=== PATIENT | female | born 1935 | race American Indian/Alaskan Native ===

== ENCOUNTER 2017-01-12 12:04 | Inpatient (IN) | payer MEDICARE, BC ==
[2017-01-12] MEDS ORDERED: Iohexol 240 (50 ml) ONE (12:43)
[2017-01-12] MEDS ORDERED: Alum-Mag Hydrox-Simethicone Susp (30 mL) PO STA (12:52)
[2017-01-12] MEDS ORDERED: Famotidine 20mg/50ml 20 MG/50 ML BAG IVPB STA (12:52)
[2017-01-12 13:00] LABS: BASO # 0.01 K/mm3 (0.0-2.0); BASO % 0.1 % (0.0-3.0); GRAN # 10.65 (1.4-6.5); GRAN % 83.8 % (50.0-68.0); HEMATOCRIT 41.1 % (36.0-48.0); LYMPH # 0.7 (1.2-3.4); LYMPH % 5.2 % (22.0-35.0); MEAN CELL VOLUME 91.7 fl (80.0-105.0); MEAN CORPUSCULAR HEMOGLOBIN 32.1 pg (25.0-35.0); MEAN PLATELET VOLUME 9.8 fl (7.0-11.0); MONO # 1.4 (0.1-0.6); MONO % 10.9 % (1.0-6.0); RED CELL DISTRIBUTION WIDTH 13.3 % (11.5-14.5); WHITE BLOOD COUNT 12.7 10^3/ul (4.5-11.0)
[2017-01-12 13:03] LABS: VENOUS BLOOD GAS BASE EXCESS -0.3 mmol/L (0.0-2.0); VENOUS BLOOD PH 7.46 (7.32-7.43)
--- NOTE | 2017-01-12 13:09 | ED PDOC ---
Arrival/HPI - General Chief Complaint: Abdominal Pain Time Seen by Provider: 01/12/17 12:09 Historian: Patient, Family - History of Present Illness Narrative History of Present Illness (Text): 01/12/17 Nimo Hewitt is an 81 year old female, whose past medical history includes hypertension, and hyperlipidemia, who presents to the emergency department accompanied by her family, with complaints of upper abdominal pain for the past week and a half. Patient reports she has decreased bowel movements along with loss of appetite and fever. Patient denies any nausea, vomiting, hematuria, cough, or other complaints. PMD: Dr. Quintanilla Time/Duration: > week (1 week and a half) Symptom Onset: Sudden Symptom Course: Unchanged Associated Symptoms (Text): fever, loss of appetite, and decreased bowel movement Past Medical History - Provider Review Nursing Documentation Reviewed: Yes - Cardiac Hx Hypertension: Yes - Pulmonary Hx Respiratory Disorders: No - Neurological Hx Neurological Disorder: No - HEENT Hx HEENT Disorder: No - Renal Hx Renal Disorder: No - Endocrine/Metabolic Hx Endocrine Disorders: No - Hematological/Oncological Hx Blood Disorders: No - Integumentary Hx Dermatological Disorder: No - Musculoskeletal/Rheumatological Hx Musculoskeletal Disorders: No - Gastrointestinal Hx Gastrointestinal Disorders: No - Genitourinary/Gynecological Hx Genitourinary Disorders: No - Psychiatric Hx Psychophysiologic Disorder: No Hx Substance Use: No Family/Social History - Physician Review Nursing Documentation Reviewed: Yes Family/Social History: Unknown Family HX Smoking Status: Never Smoked Hx Alcohol Use: No Hx Substance Use: No Allergies/Home Meds Allergies/Adverse Reactions: Allergies No Known Allergies Allergy (Verified 01/12/17 12:08) Home Medications: Home Meds Medication Instructions Recorded Confirmed Bisoprolol/HCTZ [Ziac 2.5-6.25 mg] 1 tab PO DAILY 01/12/17 01/12/17 Olmesartan Medoxomil [Benicar] 40 mg PO DAILY 01/12/17 01/12/17 Review of Systems - Review of Systems Constitutional: Fevers Respiratory: absent: SOB Cardiovascular: absent: Chest Pain Gastrointestinal: Abdominal Pain, Stool Changes (decreased ), Appetite Changes Neurological: absent: Headache Physical Exam Vital Signs Reviewed: Yes Vital Signs Temp Pulse Resp BP Pulse Ox 01/12/17 17:17 77 12 112/66 100 01/12/17 16:14 72 12 134/86 100 01/12/17 15:05 77 16 116/61 99 01/12/17 14:37 86 18 126/65 100 01/12/17 13:51 86 20 139/64 100 01/12/17 12:51 92 H 18 134/60 100 01/12/17 12:17 103.1 F H 105 H 18 99/61 L 96 01/12/17 12:10 103.1 F H 105 H 16 99/61 L 96 Temperature: Febrile Blood Pressure: Hypotensive Pulse: Tachycardic Respiratory Rate: Normal Appearance: Positive for: Well-Appearing, Non-Toxic, Comfortable Pain Distress: None Mental Status: Positive for: Alert and Oriented X 3 - Systems Exam Head: Present: Atraumatic, Normocephalic Pupils: Present: PERRL Extroacular Muscles: Present: EOMI Conjunctiva: Present: Icteric Mouth: Present: Moist Mucous Membranes Neck: Present: Normal Range of Motion Respiratory/Chest: Present: Clear to Auscultation, Good Air Exchange. No: Respiratory Distress, Accessory Muscle Use Cardiovascular: Present: Regular Rate and Rhythm, Normal S1, S2. No: Murmurs Abdomen: Present: Normal Bowel Sounds, Other (hepatomegaly ). No: Tenderness, Distention, Peritoneal Signs Back: Present: Normal Inspection Upper Extremity: Present: Normal Inspection. No: Cyanosis, Edema Lower Extremity: Present: Normal Inspection. No: Edema Neurological: Present: GCS=15, CN II-XII Intact, Speech Normal Skin: Present: Warm, Dry, Normal Color. No: Rashes Psychiatric: Present: Alert, Oriented x 3, Normal Insight, Normal Concentration Medical Decision Making ED Course and Treatment: 01/12/17 Impression: 81 year old female with hepatomegaly and icteric sclera complaining of upper abdominal pain for the past week and a half. Differential Diagnosis included but are not limited to: r/o sepsis vs. secondary to obstruction vs. gastritis vs. pancreatitis vs. shock liver Plan: -- EKG -- Chest X-ray -- Abdomen Ultrasound -- Labs -- Motrin, Pepcid, Maalox, Sodium Chloride -- Reassess and disposition Progress Notes: EKG: Ordered, reviewed, and independently interpreted the EKG. Rate : 100 BPM Rhythm : sinus tachycardia Interpretation : left atrial enlargement 01/12/17 13:28 Code sepsis was called 01/12/2017 15:54 Abd/Pelvis CT IMPRESSION: Gallbladder is enlarged. There is some mural thickening. There are some septations within the gallbladder. There may be lucent stones. The cystic duct appears to be dilated. There may be secondary obstruction of the upper common duct. There is intrahepatic ductal dilatation especially in the left lobe. Ultrasound correlation may be indicated. Dictator : Jarrett Limon MD 01/12/17 16:[address] Martel who will admit under her service. Case discussed with Surgical Student Rachna who will come with Community Youth Secretary. Dr. Hardeep mcclain. Dr. Ness pageperry. 01/12/17 16:[address] Garcia ICU who came to see patient. 01/12/17 17:09 I was informed that Dr. Metcalf called and said he was coming to see the patient. 01/12/17 17:[address] Ness who states that he will do an MRCP tomorrow. He agreed with antibiotic regiment. Josselin regional vice president surgical sales. 01/12/17 17:30 Case discussed with Community Youth Secretary Dr. Sharla Blandon who came to the ED to evaluate patient. She is working with Dr. Metcalf. Case discussed again with Dr. Garcia, ICU, who is aware GI Dr. Ness will do MRCP tomorrow and agrees patient will be admitted to the ICU. Case discussed with Dr. Chacon, ICU Resident, who will see the patient. - Critical Care Critical Care Minutes: 45 minutes - Lab Interpretations Lab Results: 01/12/17 12:50 01/12/17 12:50 Lab Results 01/12/17 16:07: Urine Color Yellow, Urine Appearance Sl cloudy, Urine pH 6.5, Ur Specific [place] <= 1.005, Urine Protein Negative, Urine Glucose (UA) Negative, Urine Ketones Negative, Urine Blood Small H, Urine Nitrate Negative, Urine Bilirubin Small H, Urine Urobilinogen 1.0 H, Ur Leukocyte Esterase Small H , Urine RBC 1 - 3, Urine WBC 5 - 10, Ur Epithelial Cells 6 - 8, Urine Bacteria Many 01/12/17 12:50: Sodium 135, Chloride 101, Potassium 3.6, Carbon Dioxide 22, Anion Gap 16, BUN 12, Creatinine 0.8, Est GFR ( Amer) > 60, Est GFR (Non- Af Amer) > 60, Random Glucose 157 H, Calcium 9.5, Phosphorus 1.6 L, Magnesium 1.9, Total Bilirubin 8.0 H, AST 289 H, ALT 303 H, Alkaline Phosphatase 221 H, Troponin I 0.02, Total Protein 8.3, Albumin 4.2, Globulin 4.1, Albumin/Globulin Ratio 1.0 L 01/12/17 12:50: pO2 49, VBG pH 7.46 H, VBG pCO2 32.0 L, VBG HCO3 22.8, VBG Total CO2 23.8, VBG O2 Sat (Calc) 91.9 H, VBG Base Excess -0.3 L, VBG Potassium 3.5 L, Sodium 134.0, Chloride 101.0, Glucose 162 H, Lactate 2.3 H, FiO2 21.0, Venous Blood Potassium 3.5 L 01/12/17 12:50: PT 12.3 H, INR 1.14 H, APTT 26.8 01/12/17 12:50: WBC 12.7 H, RBC 4.48, Hgb 14.4, Hct 41.1, MCV 91.7, MCH 32.1, MCHC 35.0, RDW 13.3, Plt Count 270, MPV 9.8, Gran % 83.8 H, Lymph % (Auto) 5.2 L , [place] % (Auto) 10.9 H, Eos % (Auto) 0.0 L, Baso % (Auto) 0.1, Gran # 10.65 H, Lymph # 0.7 L, [place] # 1.4 H, Eos # 0.0, Baso # 0.01 - RAD Interpretation Radiology Orders: 01/12/17 12:38 CHEST PORTABLE [RAD] Stat 01/12/17 12:39 ABD PELVIS PO & IV CONTRAST [CT] Stat 01/12/17 16:07 ABDOMEN COMPLETE [US] Stat - EKG Interpretation Interpreted by ED Physician: Yes Type: 12 lead EKG - Medication Orders Current Medication Orders: Sodium Chloride (Sodium Chloride 0.9%) 1,000 mls @ 150 mls/hr IV .Q6H40M THERESA Piperacillin Sod/Tazobactam Sod (Zosyn 4.5 Gm In Ns 100ml) 4.5 gm in 100 mls @ 200 mls/hr IVPB Q6 THERESA PRN Reason: Protocol Discontinued Medications Al Hydrox/Mg Hydrox/Simethicone (Maalox Plus 30 Ml) 30 ml PO STAT STA Stop: 01/12/17 12:53 Last Admin: 01/12/17 13:19 Dose: 30 ml Famotidine (Pepcid 20mg/50ml Premix) 20 mg in 50 mls @ 100 mls/hr IVPB STAT STA Stop: 01/12/17 13:21 Last Admin: 01/12/17 13:21 Dose: 100 mls/hr Vancomycin HCl (Vancomycin 1gm) 1 gm in 250 mls @ 167 mls/hr IVPB STAT STA PRN Reason: Protocol Stop: 01/12/17 14:59 Last Admin: 01/12/17 14:03 Dose: 167 mls/hr Piperacillin Sod/Tazobactam Sod (Zosyn 4.5 Gm In Ns 100ml) 4.5 gm in 100 mls @ 200 mls/hr IVPB STAT STA PRN Reason: Protocol Stop: 01/12/17 13:59 Last Admin: 01/12/17 13:45 Dose: 200 mls/hr Ibuprofen (Motrin Tab) 600 mg PO STAT STA Stop: 01/12/17 12:53 Last Admin: 01/12/17 13:19 Dose: 600 mg Iohexol (Omnipaque 240 (50 Ml)) Confirm Administered Dose 50 ml .ROUTE .STK-MED ONE Stop: 01/12/17 12:44 Iohexol (Omnipaque 350 100 Ml) Confirm Administered Dose 350 mg .ROUTE .STK-MED ONE Stop: 01/12/17 14:32 Disposition/Present on Arrival - Present on Arrival Any Indicators Present on Arrival: No History of DVT/PE: No History of Uncontrolled Diabetes: No Urinary Catheter: No History of Decub. Ulcer: No History Surgical Site Infection Following: None - Disposition Have Diagnosis and Disposition been Completed?: Yes Diagnosis: Choledocholithiasis, Sepsis, Cholecystitis Disposition Time: 16:19 Patient Plan: ICU Patient Problems: Current Active Problems Problem Status Onset Choledocholithiasis Acute Sepsis Acute Condition: CRITICAL
[2017-01-12 13:10] LABS: INR 1.14 (0.93-1.08); PARTIAL THROMBOPLASTIN TIME 26.8 Seconds (23.7-30.8)
[2017-01-12 13:15] LABS: ALKALINE PHOSPHATASE 221 U/L (38-126); ALT/SGPT 303 U/L (7-56); AST/SGOT 289 U/L (14-36); BLOOD UREA NITROGEN 12 mg/dL (7-21); CALCIUM 9.5 mg/dL (8.4-10.5); CARBON DIOXIDE 22 mmol/L (21-33); CHLORIDE 101 mmol/L (98-107); GFR AFRICAN-AMERICAN > 60; GLUCOSE,RANDOM 157 mg/dL (70-110); MAGNESIUM 1.9 mg/dL (1.7-2.2); PHOSPHOROUS 1.6 mg/dL (2.5-4.5); POTASSIUM 3.6 mmol/L (3.6-5.0); SODIUM 135 mmol/L (132-148); TOTAL PROTEIN 8.3 g/dL (5.8-8.3)
[2017-01-12 13:24] LABS: TROPONIN I 0.02 ng/mL
[2017-01-12] MEDS ORDERED: Vancomycin 1gm in NS 250ml 1 GM/250 ML BAG IVPB STA (13:30)
[2017-01-12] MEDS ORDERED: Piperacill/Tazo 4.5gm in NS 4.5 GM/100 ML BAG IVPB STA (13:30)
[2017-01-12] MEDS ORDERED: Iohexol 350 MG/100 ML VIAL ONE (14:31)
--- NOTE | 2017-01-12 15:56 | CT ---
PROCEDURE: CT Abdomen and Pelvis with contrast HISTORY: abd pain r/o obstruction r/o appy r/o colitis COMPARISON: None. TECHNIQUE: Contrast dose: 100 cc of Omni 350 Radiation dose: Total exam DLP = 340 mGy-cm. This CT exam was performed using one or more of the following dose reduction techniques: Automated exposure control, adjustment of the mA and/or kV according to patient size, and/or use of iterative reconstruction technique. FINDINGS: LOWER THORAX: Unremarkable. LIVER: There is intrahepatic ductal dilatation especially in the left lobe. GALLBLADDER AND BILE DUCTS: Gallbladder is enlarged. There is some mural thickening. There are some septations within the gallbladder. There may be lucent stones. The cystic duct appears to be dilated. There may be secondary obstruction of the upper common duct. Ultrasound correlation may be indicated PANCREAS: Unremarkable. No gross lesion or ductal dilatation. SPLEEN: Unremarkable. ADRENALS: Unremarkable. No mass. KIDNEYS AND URETERS: Unremarkable. No hydronephrosis. No solid mass. VASCULATURE: Unremarkable. No aortic aneurysm. BOWEL: Unremarkable. No obstruction. No gross mural thickening. APPENDIX: Normal appendix. PERITONEUM: Unremarkable. No free fluid. No free air. LYMPH NODES: Unremarkable. No enlarged lymph nodes. BLADDER: Unremarkable. REPRODUCTIVE: Unremarkable. BONES: No acute fracture. OTHER FINDINGS: None. IMPRESSION: Gallbladder is enlarged. There is some mural thickening. There are some septations within the gallbladder. There may be lucent stones. The cystic duct appears to be dilated. There may be secondary obstruction of the upper common duct. There is intrahepatic ductal dilatation especially in the left lobe. Ultrasound correlation may be indicated
[2017-01-12 16:22] LABS: PH,URINE 6.5 (4.7-8.0); URINE BILIRUBIN SMALL (NEGATIVE); URINE BLOOD SMALL (NEGATIVE); URINE GLUCOSE (UA) NEGATIVE (NEGATIVE); URINE KETONE NEGATIVE (NEGATIVE); URINE LEUKOCYTE ESTERASE SMALL Leu/uL (NEGATIVE); URINE PROTEIN NEGATIVE mg/dL (<30 mg/dL)
[2017-01-12 16:25] LABS: URINE APPEARANCE SL CLOUDY (CLEAR); URINE COLOR YELLOW (YELLOW)
[2017-01-12 16:40] LABS: URINE BACTERIA MANY (NEG)
--- NOTE | 2017-01-12 16:40 | CP.PCM.HP ---
<Ciarra Barbosa - Last Filed: 01/12/17 18:07> History of Present Illness - History of Present Illness History of Present Illness: PGY-[address] Lorenzo Admission: Fever, intractable epigastric pain, decrease PO intake Nimo Hewitt is an 81 year old female, whose past medical history includes hypertension, and hyperlipidemia, presents to the emergency department accompanied by daughter, Zofia, with complaints of upper abdominal pain, decrease PO intake, and lethargy. Pt complained of mid-back pain, on-off, since 1 week ago with constipation. The back pain persist for 1 week with new onset epigastric pain 2 days ago. Daughter noticed pt has been eating less, increase lethargy, increase sleeping time. Epigastric pain is constant, aggravated by position, not associate with food intake. Denies sick contact, travel, raw seafood. Pt still take out garbage this AM. ROS (+) Subjective Fever/Chills (+) Loss of appetite. Denies N/V/D. (+) Decreased bowel movements. Last BM was 1 week ago s/p fleet enema (+) Flatulence Denies CP, SOB, dysuria, RAMOS, hematuria, cough, Numbness/tingling. Upon ED arrival, T 103.1, HR 105, RR 18, 99/91 CBC sig for WBC 12.7 BMP shows normal renal function. AST and ALT ~ 300, Alk phos 221 Total bilirubin 8 Code sepsis called at 3:30pm VBG lactate 2.3 Blood/urine culture drawn, Pending U/A Pending amylase, lipase, hep panel, acetaminophen level CXR pending official read EKG showed NSR 100. left atrial enalargement CT Abd/Pelvis: (+) enlarged gallbladder with mural thickening. (+) septations within the gallbladder with lucent stones. (+) dilated cystic duct. (+) secondary obstruction of the upper common duct. (+) intrahepatic ductal dilatation especially in the left lobe. Abdominal Ultrasound: choletlithiasis in gallbladder neck and gallbladder sludge Gallballder wall thickened with pericholecystic edema Negative de jesus sign 1.6 calculus in common bile duct, which is dilated to 1.6cm intrahepatic biliary ductal dilatation Fatty liver U/A: 5-10 WBC, Negative nitrate, positive urobilinogen ED consulted Dr. Ness, Dr. Meier, and Dr. Garcia (ICU), ID (Dr. Dawson) Pt received NS@150, Vanco and zosyn x 1, maloox, famotidine, ibuprofen PMH HTN, HLD PSH None FH Sister, [place] at 60s SH Live with daughter, 4 flight of stairs to home, no walker needed Denies ever smoke, drink, drug Allergy NKDA Med Nisoprolol/HCTX 2.5-6.25mg daily Olmesartan 40 daily PMD Cindi Quintanilla MD Present on Admission - Present on Admission Any Indicators Present on Admission: No Past Patient History - Past Social History Smoking Status: Never Smoked - CARDIAC Hx Hypertension: Yes - PULMONARY Hx Respiratory Disorders: No - NEUROLOGICAL Hx Neurological Disorder: No - HEENT Hx HEENT Problems: No - RENAL Hx Chronic Kidney Disease: No - ENDOCRINE/METABOLIC Hx Endocrine Disorders: No - HEMATOLOGICAL/ONCOLOGICAL Hx Blood Disorders: No - INTEGUMENTARY Hx Dermatological Problems: No - MUSCULOSKELETAL/RHEUMATOLOGICAL Hx Musculoskeletal Disorders: No - GASTROINTESTINAL Hx Gastrointestinal Disorders: No - GENITOURINARY/GYNECOLOGICAL Hx Genitourinary Disorders: No - PSYCHIATRIC Hx Psychophysiologic Disorder: No Hx Substance Use: No - SURGICAL HISTORY Hx Surgeries: No Meds Allergies/Adverse Reactions: Allergies Allergy/AdvReac Type Severity Reaction Status Date / Time No Known Allergies Allergy Verified 01/12/17 12:08 Physical Exam - Constitutional Appears: No Acute Distress - Head Exam Head Exam: ATRAUMATIC, NORMAL INSPECTION, NORMOCEPHALIC - Eye Exam Eye Exam: EOMI, Normal appearance, PERRL, Scleral icterus Pupil Exam: NORMAL ACCOMODATION - ENT Exam ENT Exam: Mucous Membranes Moist - Neck Exam Additional comments: SUPPLE - Respiratory Exam Respiratory Exam: Decreased Breath Sounds (bibasilar), Clear to Auscultation Bilateral. absent: Rales, Rhonchi, Wheezes - Cardiovascular Exam Cardiovascular Exam: REGULAR RHYTHM, +S1, +S2. absent: Tachycardia - GI/Abdominal Exam GI & Abdominal Exam: Hyperactive Bowel Sounds, Soft, Tenderness (mild, epigastric). absent: Distended, Guarding, Rigid - Extremities Exam Extremities exam: Positive for: normal capillary refill, pedal pulses present. Negative for: calf tenderness, pedal edema - Back Exam Back exam: absent: CVA tenderness (L), CVA tenderness (R) - Neurological Exam Neurological exam: Alert, Oriented x3 - Psychiatric Exam Psychiatric exam: Normal Affect, Normal Mood - Skin Skin Exam: Dry, Warm Results - Vital Signs Recent Vital Signs: Last Vital Signs Temp 103.1 F H 01/12/17 12:17 Pulse 72 01/12/17 16:14 Resp 12 01/12/17 16:14 BP 134/86 01/12/17 16:14 Pulse Ox 100 01/12/17 16:14 - Labs Result Diagrams: 01/12/17 12:50 01/12/17 12:50 Labs: Laboratory Results - last 24 hr 01/12/17 01/12/17 01/12/17 12:50 12:50 12:50 WBC 12.7 H RBC 4.48 Hgb 14.4 Hct 41.1 MCV 91.7 MCH 32.1 MCHC 35.0 RDW 13.3 Plt Count 270 MPV 9.8 Gran % 83.8 H Lymph % (Auto) 5.2 L [place] % (Auto) 10.9 H Eos % (Auto) 0.0 L Baso % (Auto) 0.1 Gran # 10.65 H Lymph # 0.7 L [place] # 1.4 H Eos # 0.0 Baso # 0.01 PT 12.3 H INR 1.14 H APTT 26.8 pO2 49 VBG pH 7.46 H VBG pCO2 32.0 L VBG HCO3 22.8 VBG Total CO2 23.8 VBG O2 Sat (Calc) 91.9 H VBG Base Excess -0.3 L VBG Potassium 3.5 L Sodium 134.0 Chloride 101.0 Glucose 162 H Lactate 2.3 H FiO2 21.0 Potassium Carbon Dioxide Anion Gap BUN Creatinine Est GFR ( Amer) Est GFR (Non-Af Amer) Random Glucose Calcium Phosphorus Magnesium Total Bilirubin AST ALT Alkaline Phosphatase Troponin I Total Protein Albumin Globulin Albumin/Globulin Ratio Venous Blood Potassium 3.5 L Urine Color Urine Appearance Urine pH Ur Specific [place] Urine Protein Urine Glucose (UA) Urine Ketones Urine Blood Urine Nitrate Urine Bilirubin Urine Urobilinogen Ur Leukocyte Esterase 01/12/17 01/12/17 12:50 16:07 WBC RBC Hgb Hct MCV MCH MCHC RDW Plt Count MPV Gran % Lymph % (Auto) [place] % (Auto) Eos % (Auto) Baso % (Auto) Gran # Lymph # [place] # Eos # Baso # PT INR APTT pO2 VBG pH VBG pCO2 VBG HCO3 VBG Total CO2 VBG O2 Sat (Calc) VBG Base Excess VBG Potassium Sodium 135 Chloride 101 Glucose Lactate FiO2 Potassium 3.6 Carbon Dioxide 22 Anion Gap 16 BUN 12 Creatinine 0.8 Est GFR ( Amer) > 60 Est GFR (Non-Af Amer) > 60 Random Glucose 157 H Calcium 9.5 Phosphorus 1.6 L Magnesium 1.9 Total Bilirubin 8.0 H AST 289 H ALT 303 H Alkaline Phosphatase 221 H Troponin I 0.02 Total Protein 8.3 Albumin 4.2 Globulin 4.1 Albumin/Globulin Ratio 1.0 L Venous Blood Potassium Urine Color Yellow Urine Appearance Sl cloudy Urine pH 6.5 Ur Specific [place] <= 1.005 Urine Protein Negative Urine Glucose (UA) Negative Urine Ketones Negative Urine Blood Small H Urine Nitrate Negative Urine Bilirubin Small H Urine Urobilinogen 1.0 H Ur Leukocyte Esterase Small H Assessment & Plan - Assessment and Plan (Free Text) Plan: 81 year old AA female, PMHx HTN, HLD c/o upper abdominal pain, decrease PO intake, constipation and lethargy. Pt was admitted inpatient to ICU for sepsis possibly due to cholecystitis vs choledocholithiasis. Sepsis possibly from intraabdominal infection. Doubt UTI - Pyuria without symptoms - ID following - NS@150 - Zosyn (day 1) - Pending blood culture, urine culture - tylenol prn Cholecystitis Poss Choledocholithiasis Intractable abdominal pain R/O gallstone pancreatitis - pending amylase, lipase - NPO - zofran, protonix, morphine 0.5 IV q4 prn - MRCP stat - Surgery and GI following Hyperbilirubinemia - Pending direct bilirubin, doubt hemolysis Transaminitis - pending acetaminophen level, hepatitis panel Constipation Has r/o bowel obstruction - Senna + miralax prn - pending GI rec Hx HTN - hold PO HTN med for decreased BP Hx HLD - pending lipid panel, a1c Prophylaxis = heparin SC + protonix FENA = NS@100, NPO, IV Consult: ID = Dr Dawson Surg = Dr. Shah GI = Dr. Ness ICU = Dr Garcia S/r/d/w Dr. Lorenzo <Reymundo Lorenzo - Last Filed: 01/12/17 18:28> Results - Vital Signs Recent Vital Signs: Last Vital Signs Temp 97.8 F 01/12/17 16:14 Pulse 77 01/12/17 17:17 Resp 12 01/12/17 17:17 BP 112/66 01/12/17 17:17 Pulse Ox 100 01/12/17 17:17 - Labs Result Diagrams: 01/12/17 12:50 01/12/17 12:50 Labs: Laboratory Results - last 24 hr 01/12/17 01/12/17 01/12/17 17:10 17:22 17:22 pO2 110 H VBG pH 7.42 VBG pCO2 34.0 L VBG HCO3 22.1 VBG Total CO2 23.1 VBG O2 Sat (Calc) 99.2 H VBG Base Excess -1.7 L VBG Potassium 3.3 L Sodium 135.0 Chloride 103.0 Glucose 135 H Lactate 1.3 FiO2 21.0 Direct Bilirubin 6.0 H Amylase 61 Lipase 56 Venous Blood Potassium 3.3 L Acetaminophen < 10.0 L Attending/Attestation - Attestation I have personally seen and examined this patient.: Yes I have fully participated in the care of the patient.: Yes I have reviewed all pertinent clinical information: Yes Notes (Text): 01/12/17 18:13 81 year old female with past medical history of hypertension and dyslipidemia who presents today with complaint of abdominal pain. In ER she was found to have sepsis with temperature of 103 and leukocytosis of 12.7. CT abd/pelvis showed enlarged gallbladder with mural thickening, lucent gallbladder stones with septations, dilated cystic duct, secondary obstruction of the upper common duct and intrahepatic ductal dilatation as well. Abdominal ultrasound showed cholelithiasis in gallbladder neck with gallbladder sludge, gallbladder wall thickening with pericholecystic edema and 1.6 calculus in CBD. LFTs are elevated. Patient is being admitted to ICU. Continue with NPO, IV fluids, antibiotics and analgesics. Cultures are pending. ID, surgery and GI evaluation are requested. May need MRCP/ERCP +/- surgery. Will continue to trend LFTs. Hold antihypertensives for now. Lipid panel ordered for AM. Reymundo Lorenzo MD Hospitalist.
--- NOTE | 2017-01-12 16:42 | CP.CCUPN ---
CCU Subjective - Physician Review Events Since Last Encounter (Free Text): 01/12/17 16:37 81 y/o F w/ HTn who came in with abd pain, poor P.O intake x 2 days and chills. The patient has had similar pain back in 2016 but it resolved with PPI. Currently she is seen to be comfortable, speaking and not exhibiting peritoneal signs. CCU Objective - Vital Signs / Intake & Output Vital Signs (Last 4 hours): Vital Signs Pulse Resp BP Pulse Ox 01/12/17 16:14 72 12 134/86 100 01/12/17 15:05 77 16 116/61 99 01/12/17 14:37 86 18 126/65 100 01/12/17 13:51 86 20 139/64 100 01/12/17 12:51 92 H 18 134/60 100 Intake and Output (Last 8hrs): Intake & Output 01/12/17 01/12/17 01/12/17 06:59 14:59 22:59 Weight 147 lb - Physical Exam Head: Positive for: Atraumatic, Normocephalic Pupils: Positive for: PERRL, Other (scleral icterus) Extroacular Muscles: Positive for: EOMI Conjunctiva: Positive for: Icteric Mouth: Positive for: Moist Mucous Membranes Neck: Positive for: Normal Range of Motion Respiratory/Chest: Positive for: Clear to Auscultation, Good Air Exchange. Negative for: Respiratory Distress, Accessory Muscle Use Cardiovascular: Positive for: Regular Rate and Rhythm, Normal S1, S2. Negative for: Murmurs Abdomen: Positive for: Normal Bowel Sounds, Other (hepatomegaly ). Negative for : Tenderness, Distention, Peritoneal Signs Back: Positive for: Normal Inspection Upper Extremity: Positive for: Normal Inspection. Negative for: Cyanosis, Edema Lower Extremity: Positive for: Normal Inspection. Negative for: Edema Neurological: Positive for: GCS=15, CN II-XII Intact, Speech Normal Skin: Positive for: Warm, Dry, Normal Color. Negative for: Rashes Psychiatric: Positive for: Alert, Oriented x 3, Normal Insight, Normal Concentration - Medications Active Medications: Active Medications Generic Name Dose Route Start Last Admin Trade Name Freq PRN Reason Stop Dose Admin Sodium Chloride 1,000 mls @ 150 mls/hr 01/12/17 12:45 Sodium Chloride 0.9% IV .Q6H40M THERESA - Patient Studies Lab Studies: Lab Studies 01/12/17 01/12/17 01/12/17 Range/Units 16:07 12:50 12:50 WBC (4.5-11.0) 10^3/ul RBC (3.5-6.1) 10^6/uL Hgb (12.0-16.0) g/dL Hct (36.0-48.0) % MCV (80.0-105.0) fl MCH (25.0-35.0) pg MCHC (31.0-37.0) g/dl RDW (11.5-14.5) % Plt Count (120.0-450.0) 10^3/uL MPV (7.0-11.0) fl Gran % (50.0-68.0) % Lymph % (Auto) (22.0-35.0) % [place] % (Auto) (1.0-6.0) % Eos % (Auto) (1.5-5.0) % Baso % (Auto) (0.0-3.0) % Gran # (1.4-6.5) Lymph # (1.2-3.4) [place] # (0.1-0.6) Eos # (0.0-0.7) Baso # (0.0-2.0) K/mm3 PT (9.9-11.8) Seconds INR (0.93-1.08) APTT (23.7-30.8) Seconds pO2 49 (30-55) mm/Hg VBG pH 7.46 H (7.32-7.43) VBG pCO2 32.0 L (40-60) VBG HCO3 22.8 (21-28) mmol/l VBG Total CO2 23.8 (22-28) mmol.L VBG O2 Sat (Calc) 91.9 H (40-65) % VBG Base Excess -0.3 L (0.0-2.0) mmol/L VBG Potassium 3.5 L (3.6-5.2) mmol/L Sodium 135 134.0 (132-148) mmol/L Chloride 101 101.0 (98-107) mmol/L Glucose 162 H (65-105) mg/dl Lactate 2.3 H (0.7-2.1) mmol/L FiO2 21.0 % Potassium 3.6 (3.6-5.0) mmol/L Carbon Dioxide 22 (21-33) mmol/L Anion Gap 16 (10-20) BUN 12 (7-21) mg/dL Creatinine 0.8 (0.5-1.4) mg/dL Est GFR ( Amer) > 60 Est GFR (Non-Af Amer) > 60 Random Glucose 157 H (70-110) mg/dL Calcium 9.5 (8.4-10.5) mg/dL Phosphorus 1.6 L (2.5-4.5) mg/dL Magnesium 1.9 (1.7-2.2) mg/dL Total Bilirubin 8.0 H (0.2-1.3) mg/dL AST 289 H (14-36) U/L ALT 303 H (7-56) U/L Alkaline Phosphatase 221 H (38-126) U/L Troponin I 0.02 ng/mL Total Protein 8.3 (5.8-8.3) g/dL Albumin 4.2 (3.0-4.8) g/dL Globulin 4.1 gm/dL Albumin/Globulin Ratio 1.0 L (1.1-1.8) Venous Blood Potassium 3.5 L (3.6-5.2) mmol/L Urine Color Yellow (YELLOW) Urine Appearance Sl cloudy (CLEAR) Urine pH 6.5 (4.7-8.0) Ur Specific [place] <= 1.005 (1.005-1.035) Urine Protein Negative (<30 mg/dL) mg/dL Urine Glucose (UA) Negative (NEGATIVE) mg/dL Urine Ketones Negative (NEGATIVE) mg/dL Urine Blood Small H (NEGATIVE) Urine Nitrate Negative (NEGATIVE) Urine Bilirubin Small H (NEGATIVE) Urine Urobilinogen 1.0 H (<1 E.U./dL) E.U./dL Ur Leukocyte Esterase Small H (NEGATIVE) Mic/uL 01/12/17 01/12/17 Range/Units 12:50 12:50 WBC 12.7 H (4.5-11.0) 10^3/ul RBC 4.48 (3.5-6.1) 10^6/uL Hgb 14.4 (12.0-16.0) g/dL Hct 41.1 (36.0-48.0) % MCV 91.7 (80.0-105.0) fl MCH 32.1 (25.0-35.0) pg MCHC 35.0 (31.0-37.0) g/dl RDW 13.3 (11.5-14.5) % Plt Count 270 (120.0-450.0) 10^3/uL MPV 9.8 (7.0-11.0) fl Gran % 83.8 H (50.0-68.0) % Lymph % (Auto) 5.2 L (22.0-35.0) % [place] % (Auto) 10.9 H (1.0-6.0) % Eos % (Auto) 0.0 L (1.5-5.0) % Baso % (Auto) 0.1 (0.0-3.0) % Gran # 10.65 H (1.4-6.5) Lymph # 0.7 L (1.2-3.4) [place] # 1.4 H (0.1-0.6) Eos # 0.0 (0.0-0.7) Baso # 0.01 (0.0-2.0) K/mm3 PT 12.3 H (9.9-11.8) Seconds INR 1.14 H (0.93-1.08) APTT 26.8 (23.7-30.8) Seconds pO2 (30-55) mm/Hg VBG pH (7.32-7.43) VBG pCO2 (40-60) VBG HCO3 (21-28) mmol/l VBG Total CO2 (22-28) mmol.L VBG O2 Sat (Calc) (40-65) % VBG Base Excess (0.0-2.0) mmol/L VBG Potassium (3.6-5.2) mmol/L Sodium (132-148) mmol/L Chloride (98-107) mmol/L Glucose (65-105) mg/dl Lactate (0.7-2.1) mmol/L FiO2 % Potassium (3.6-5.0) mmol/L Carbon Dioxide (21-33) mmol/L Anion Gap (10-20) BUN (7-21) mg/dL Creatinine (0.5-1.4) mg/dL Est GFR ( Amer) Est GFR (Non-Af Amer) Random Glucose (70-110) mg/dL Calcium (8.4-10.5) mg/dL Phosphorus (2.5-4.5) mg/dL Magnesium (1.7-2.2) mg/dL Total Bilirubin (0.2-1.3) mg/dL AST (14-36) U/L ALT (7-56) U/L Alkaline Phosphatase (38-126) U/L Troponin I ng/mL Total Protein (5.8-8.3) g/dL Albumin (3.0-4.8) g/dL Globulin gm/dL Albumin/Globulin Ratio (1.1-1.8) Venous Blood Potassium (3.6-5.2) mmol/L Urine Color (YELLOW) Urine Appearance (CLEAR) Urine pH (4.7-8.0) Ur Specific [place] (1.005-1.035) Urine Protein (<30 mg/dL) mg/dL Urine Glucose (UA) (NEGATIVE) mg/dL Urine Ketones (NEGATIVE) mg/dL Urine Blood (NEGATIVE) Urine Nitrate (NEGATIVE) Urine Bilirubin (NEGATIVE) Urine Urobilinogen (<1 E.U./dL) E.U./dL Ur Leukocyte Esterase (NEGATIVE) Mic/uL Laboratory Results - last 24 hr 01/12/17 01/12/17 01/12/17 12:50 12:50 12:50 WBC 12.7 H RBC 4.48 Hgb 14.4 Hct 41.1 MCV 91.7 MCH 32.1 MCHC 35.0 RDW 13.3 Plt Count 270 MPV 9.8 Gran % 83.8 H Lymph % (Auto) 5.2 L [place] % (Auto) 10.9 H Eos % (Auto) 0.0 L Baso % (Auto) 0.1 Gran # 10.65 H Lymph # 0.7 L [place] # 1.4 H Eos # 0.0 Baso # 0.01 PT 12.3 H INR 1.14 H APTT 26.8 pO2 49 VBG pH 7.46 H VBG pCO2 32.0 L VBG HCO3 22.8 VBG Total CO2 23.8 VBG O2 Sat (Calc) 91.9 H VBG Base Excess -0.3 L VBG Potassium 3.5 L Sodium 134.0 Chloride 101.0 Glucose 162 H Lactate 2.3 H FiO2 21.0 Potassium Carbon Dioxide Anion Gap BUN Creatinine Est GFR ( Amer) Est GFR (Non-Af Amer) Random Glucose Calcium Phosphorus Magnesium Total Bilirubin AST ALT Alkaline Phosphatase Troponin I Total Protein Albumin Globulin Albumin/Globulin Ratio Venous Blood Potassium 3.5 L Urine Color Urine Appearance Urine pH Ur Specific [place] Urine Protein Urine Glucose (UA) Urine Ketones Urine Blood Urine Nitrate Urine Bilirubin Urine Urobilinogen Ur Leukocyte Esterase 01/12/17 01/12/17 12:50 16:07 WBC RBC Hgb Hct MCV MCH MCHC RDW Plt Count MPV Gran % Lymph % (Auto) [place] % (Auto) Eos % (Auto) Baso % (Auto) Gran # Lymph # [place] # Eos # Baso # PT INR APTT pO2 VBG pH VBG pCO2 VBG HCO3 VBG Total CO2 VBG O2 Sat (Calc) VBG Base Excess VBG Potassium Sodium 135 Chloride 101 Glucose Lactate FiO2 Potassium 3.6 Carbon Dioxide 22 Anion Gap 16 BUN 12 Creatinine 0.8 Est GFR ( Amer) > 60 Est GFR (Non-Af Amer) > 60 Random Glucose 157 H Calcium 9.5 Phosphorus 1.6 L Magnesium 1.9 Total Bilirubin 8.0 H AST 289 H ALT 303 H Alkaline Phosphatase 221 H Troponin I 0.02 Total Protein 8.3 Albumin 4.2 Globulin 4.1 Albumin/Globulin Ratio 1.0 L Venous Blood Potassium Urine Color Yellow Urine Appearance Sl cloudy Urine pH 6.5 Ur Specific [place] <= 1.005 Urine Protein Negative Urine Glucose (UA) Negative Urine Ketones Negative Urine Blood Small H Urine Nitrate Negative Urine Bilirubin Small H Urine Urobilinogen 1.0 H Ur Leukocyte Esterase Small H EKG/Cardiology Studies: Cardiology / EKG Studies 01/12/17 12:38 ELECTROCARDIOGRAM Stat Comment: Reason For Exam: Sepsis Patient Review of Systems - EENT Eyes: UNREMARKABLE Ears: UNREMARKABLE Nose/Mouth/Throat: UNREMARKABLE - Breasts Breasts: UNREMARKABLE - Cardiovascular Cardiovascular: UNREMARKABLE - Respiratory Respiratory: UNREMARKABLE - Gastrointestinal Gastrointestinal: Abdominal Pain, Change in Bowel Habits, Change in Stool Character - Genitourinary Genitourinary: UNREMARKABLE - Reproductive: Female Reproductive:Female: UNREMARKABLE - Menstruation Menstruation: UNREMARKABLE Critical Care Progress Note - Nutrition Nutrition: Nutrition Category Date Time Status NPO Diet [DIET] Diets 01/12/17 Dinner Ordered Assessment/Plan - Assessment and Plan (Free Text) Assessment: 81 y/o F w/ HTN found to have acute cholycystitis Ct abd/pelvis shows multiple gallstones and GB wall thickening . Increased LFT, Increased alk Phos and T. Bili. US GB to check for Bile duct stone and concern for CD. NPO Continue w/ abx Vancomycin and Zosyn . Blood cx pending. Will monitor in ICu overnight cc time 55 min
--- NOTE | 2017-01-12 16:58 | CP.PCM.CON ---
History of Present Illness - History of Present Illness History of Present Illness: Consult note for Dr. Meier 81 F presents with abdominal discomfort for the past two weeks. The pain got worse in the middle of last week. Patient states that pain does not radiate to shoulder or back. It's not associated with eating food. Patient denies nausea and vomiting, and diarrhea. Patient admits to fever and chills, constipation. Last bowel movement was Tuesday, light colored, white speckled. PAtient denies weight loss abut admits to decreased diet PMH: HTN, HLD PSH: no FHx: none NKDA Past Patient History - Past Social History Smoking Status: Never Smoked - CARDIAC Hx Hypertension: Yes - PULMONARY Hx Respiratory Disorders: No - NEUROLOGICAL Hx Neurological Disorder: No - HEENT Hx HEENT Problems: No - RENAL Hx Chronic Kidney Disease: No - ENDOCRINE/METABOLIC Hx Endocrine Disorders: No - HEMATOLOGICAL/ONCOLOGICAL Hx Blood Disorders: No - INTEGUMENTARY Hx Dermatological Problems: No - MUSCULOSKELETAL/RHEUMATOLOGICAL Hx Musculoskeletal Disorders: No - GASTROINTESTINAL Hx Gastrointestinal Disorders: No - GENITOURINARY/GYNECOLOGICAL Hx Genitourinary Disorders: No - PSYCHIATRIC Hx Psychophysiologic Disorder: No Hx Substance Use: No - SURGICAL HISTORY Hx Surgeries: No Meds Allergies/Adverse Reactions: Allergies Allergy/AdvReac Type Severity Reaction Status Date / Time No Known Allergies Allergy Verified 01/12/17 12:08 - Medications Medications: Current Medications Sodium Chloride (Sodium Chloride 0.9%) 1,000 mls @ 150 mls/hr IV .Q6H40M THERESA Physical Exam - Constitutional Appears: No Acute Distress - Head Exam Head Exam: NORMAL INSPECTION - Eye Exam Eye Exam: EOMI, Scleral icterus - ENT Exam ENT Exam: Mucous Membranes Moist. absent: Mucous Membranes Dry - Neck Exam Neck exam: Positive for: Full Rom, Normal Inspection - Respiratory Exam Respiratory Exam: Clear to Auscultation Bilateral, NORMAL BREATHING PATTERN. absent: Accessory Muscle Use, Respiratory Distress - Cardiovascular Exam Cardiovascular Exam: REGULAR RHYTHM. absent: Bradycardia, Tachycardia - GI/Abdominal Exam GI & Abdominal Exam: Guarding, Soft. absent: Pulsatile Mass, Rebound, Rigid Additional comments: gallbladder palpated from right upper quadrant. pain on palpation - Extremities Exam Extremities exam: Positive for: normal inspection. Negative for: pedal edema - Neurological Exam Neurological exam: Alert, Normal Gait, Oriented x3 - Skin Skin Exam: Dry, Warm Results - Vital Signs Recent Vital Signs: Last Vital Signs Temp 103.1 F H 01/12/17 12:17 Pulse 72 01/12/17 16:14 Resp 12 01/12/17 16:14 BP 134/86 01/12/17 16:14 Pulse Ox 100 01/12/17 16:14 - Labs Result Diagrams: 01/12/17 12:50 01/12/17 12:50 Labs: Laboratory Results - last 24 hr 01/12/17 01/12/17 01/12/17 12:50 12:50 12:50 WBC 12.7 H RBC 4.48 Hgb 14.4 Hct 41.1 MCV 91.7 MCH 32.1 MCHC 35.0 RDW 13.3 Plt Count 270 MPV 9.8 Gran % 83.8 H Lymph % (Auto) 5.2 L [place] % (Auto) 10.9 H Eos % (Auto) 0.0 L Baso % (Auto) 0.1 Gran # 10.65 H Lymph # 0.7 L [place] # 1.4 H Eos # 0.0 Baso # 0.01 PT 12.3 H INR 1.14 H APTT 26.8 pO2 49 VBG pH 7.46 H VBG pCO2 32.0 L VBG HCO3 22.8 VBG Total CO2 23.8 VBG O2 Sat (Calc) 91.9 H VBG Base Excess -0.3 L VBG Potassium 3.5 L Sodium 134.0 Chloride 101.0 Glucose 162 H Lactate 2.3 H FiO2 21.0 Potassium Carbon Dioxide Anion Gap BUN Creatinine Est GFR ( Amer) Est GFR (Non-Af Amer) Random Glucose Calcium Phosphorus Magnesium Total Bilirubin AST ALT Alkaline Phosphatase Troponin I Total Protein Albumin Globulin Albumin/Globulin Ratio Venous Blood Potassium 3.5 L Urine Color Urine Appearance Urine pH Ur Specific [place] Urine Protein Urine Glucose (UA) Urine Ketones Urine Blood Urine Nitrate Urine Bilirubin Urine Urobilinogen Ur Leukocyte Esterase Urine RBC Urine WBC Ur Epithelial Cells Urine Bacteria 01/12/17 01/12/17 12:50 16:07 WBC RBC Hgb Hct MCV MCH MCHC RDW Plt Count MPV Gran % Lymph % (Auto) [place] % (Auto) Eos % (Auto) Baso % (Auto) Gran # Lymph # [place] # Eos # Baso # PT INR APTT pO2 VBG pH VBG pCO2 VBG HCO3 VBG Total CO2 VBG O2 Sat (Calc) VBG Base Excess VBG Potassium Sodium 135 Chloride 101 Glucose Lactate FiO2 Potassium 3.6 Carbon Dioxide 22 Anion Gap 16 BUN 12 Creatinine 0.8 Est GFR ( Amer) > 60 Est GFR (Non-Af Amer) > 60 Random Glucose 157 H Calcium 9.5 Phosphorus 1.6 L Magnesium 1.9 Total Bilirubin 8.0 H AST 289 H ALT 303 H Alkaline Phosphatase 221 H Troponin I 0.02 Total Protein 8.3 Albumin 4.2 Globulin 4.1 Albumin/Globulin Ratio 1.0 L Venous Blood Potassium Urine Color Yellow Urine Appearance Sl cloudy Urine pH 6.5 Ur Specific [place] <= 1.005 Urine Protein Negative Urine Glucose (UA) Negative Urine Ketones Negative Urine Blood Small H Urine Nitrate Negative Urine Bilirubin Small H Urine Urobilinogen 1.0 H Ur Leukocyte Esterase Small H Urine RBC 1 - 3 Urine WBC 5 - 10 Ur Epithelial Cells 6 - 8 Urine Bacteria Many Assessment & Plan - Assessment and Plan (Free Text) Assessment: 81F presents with abdominal pain, choledocholithiasis and cholecystitis. Plan: c/w IVF (NS @ 150) monitor vitals c/w antibiotics per primary f/u lipase, amylase f/u MRCP and GI recommendations Cholecystectomy to be scheduled for outpatient awaiting GI findings on MRCP. monitor for mental status changes Sharla Blandon DO PGY1 - Date & Time Date: 01/12/17 Time: 18:15
--- NOTE | 2017-01-12 17:08 | CP.PCM.CON ---
History of Present Illness - History of Present Illness History of Present Illness: Infectious Disease Consultation: January 12, 2017 81 yo AA female with with 2 week history of abdominal pain and 2 day history of poor oral intake and chills. The patient was found to have fevers up to 103.1 F on admission to the ER. The patient with potential cholecystitis and dehydration. The patient is not showing peritoneal signs. No other complaints. PMHx: HTN PSHx: none given Allergies: NKDA Social Hx: No tobacco, EtOH, or illicit drug use Active Medications Sodium Chloride (Sodium Chloride 0.9%) 1,000 mls @ 150 mls/hr IV .Q6H40M REPLACED BY [facility] Family Hx: none given ROS: Fevers, chills, abdominal pain, poor oral intake. No chest pain, melena, hematuria, hematemesis, hematochezia, depression, anxiety, vision loss, hearing loss, loss of consiousness. Past Patient History - Past Social History Smoking Status: Never Smoked - CARDIAC Hx Hypertension: Yes - PULMONARY Hx Respiratory Disorders: No - NEUROLOGICAL Hx Neurological Disorder: No - HEENT Hx HEENT Problems: No - RENAL Hx Chronic Kidney Disease: No - ENDOCRINE/METABOLIC Hx Endocrine Disorders: No - HEMATOLOGICAL/ONCOLOGICAL Hx Blood Disorders: No - INTEGUMENTARY Hx Dermatological Problems: No - MUSCULOSKELETAL/RHEUMATOLOGICAL Hx Musculoskeletal Disorders: No - GASTROINTESTINAL Hx Gastrointestinal Disorders: No - GENITOURINARY/GYNECOLOGICAL Hx Genitourinary Disorders: No - PSYCHIATRIC Hx Psychophysiologic Disorder: No Hx Substance Use: No - SURGICAL HISTORY Hx Surgeries: No Meds Allergies/Adverse Reactions: Allergies Allergy/AdvReac Type Severity Reaction Status Date / Time No Known Allergies Allergy Verified 01/12/17 12:08 - Medications Medications: Current Medications Sodium Chloride (Sodium Chloride 0.9%) 1,000 mls @ 150 mls/hr IV .Q6H40M REPLACED BY [facility] Physical Exam - Constitutional Appears: Non-toxic, No Acute Distress - Head Exam Head Exam: ATRAUMATIC, NORMOCEPHALIC - Eye Exam Eye Exam: EOMI, PERRL Pupil Exam: NORMAL ACCOMODATION, PERRL - ENT Exam ENT Exam: Mucous Membranes Moist, Normal External Ear Exam, TM's Normal Bilaterally - Neck Exam Neck exam: Positive for: Full Rom, Normal Inspection - Respiratory Exam Respiratory Exam: Clear to Auscultation Bilateral, NORMAL BREATHING PATTERN. absent: Rales, Rhonchi, Wheezes - Cardiovascular Exam Cardiovascular Exam: REGULAR RHYTHM, RRR, +S1, +S2 - GI/Abdominal Exam GI & Abdominal Exam: Normal Bowel Sounds, Soft. absent: Distended, Tenderness - Extremities Exam Extremities exam: Positive for: full ROM, normal inspection - Neurological Exam Neurological exam: Alert, CN II-XII Intact, Oriented x3 - Psychiatric Exam Psychiatric exam: Normal Affect, Normal Mood - Skin Skin Exam: Intact, Normal Color Results - Vital Signs Recent Vital Signs: Last Vital Signs Temp 103.1 F H 01/12/17 12:17 Pulse 72 01/12/17 16:14 Resp 12 01/12/17 16:14 BP 134/86 01/12/17 16:14 Pulse Ox 100 01/12/17 16:14 - Labs Result Diagrams: 01/12/17 12:50 01/12/17 12:50 Labs: Laboratory Results - last 24 hr 01/12/17 01/12/17 01/12/17 12:50 12:50 12:50 WBC 12.7 H RBC 4.48 Hgb 14.4 Hct 41.1 MCV 91.7 MCH 32.1 MCHC 35.0 RDW 13.3 Plt Count 270 MPV 9.8 Gran % 83.8 H Lymph % (Auto) 5.2 L [place] % (Auto) 10.9 H Eos % (Auto) 0.0 L Baso % (Auto) 0.1 Gran # 10.65 H Lymph # 0.7 L [place] # 1.4 H Eos # 0.0 Baso # 0.01 PT 12.3 H INR 1.14 H APTT 26.8 pO2 49 VBG pH 7.46 H VBG pCO2 32.0 L VBG HCO3 22.8 VBG Total CO2 23.8 VBG O2 Sat (Calc) 91.9 H VBG Base Excess -0.3 L VBG Potassium 3.5 L Sodium 134.0 Chloride 101.0 Glucose 162 H Lactate 2.3 H FiO2 21.0 Potassium Carbon Dioxide Anion Gap BUN Creatinine Est GFR ( Amer) Est GFR (Non-Af Amer) Random Glucose Calcium Phosphorus Magnesium Total Bilirubin AST ALT Alkaline Phosphatase Troponin I Total Protein Albumin Globulin Albumin/Globulin Ratio Venous Blood Potassium 3.5 L Urine Color Urine Appearance Urine pH Ur Specific [place] Urine Protein Urine Glucose (UA) Urine Ketones Urine Blood Urine Nitrate Urine Bilirubin Urine Urobilinogen Ur Leukocyte Esterase Urine RBC Urine WBC Ur Epithelial Cells Urine Bacteria 01/12/17 01/12/17 12:50 16:07 WBC RBC Hgb Hct MCV MCH MCHC RDW Plt Count MPV Gran % Lymph % (Auto) [place] % (Auto) Eos % (Auto) Baso % (Auto) Gran # Lymph # [place] # Eos # Baso # PT INR APTT pO2 VBG pH VBG pCO2 VBG HCO3 VBG Total CO2 VBG O2 Sat (Calc) VBG Base Excess VBG Potassium Sodium 135 Chloride 101 Glucose Lactate FiO2 Potassium 3.6 Carbon Dioxide 22 Anion Gap 16 BUN 12 Creatinine 0.8 Est GFR ( Amer) > 60 Est GFR (Non-Af Amer) > 60 Random Glucose 157 H Calcium 9.5 Phosphorus 1.6 L Magnesium 1.9 Total Bilirubin 8.0 H AST 289 H ALT 303 H Alkaline Phosphatase 221 H Troponin I 0.02 Total Protein 8.3 Albumin 4.2 Globulin 4.1 Albumin/Globulin Ratio 1.0 L Venous Blood Potassium Urine Color Yellow Urine Appearance Sl cloudy Urine pH 6.5 Ur Specific [place] <= 1.005 Urine Protein Negative Urine Glucose (UA) Negative Urine Ketones Negative Urine Blood Small H Urine Nitrate Negative Urine Bilirubin Small H Urine Urobilinogen 1.0 H Ur Leukocyte Esterase Small H Urine RBC 1 - 3 Urine WBC 5 - 10 Ur Epithelial Cells 6 - 8 Urine Bacteria Many Assessment & Plan - Assessment and Plan (Free Text) Assessment: 81 yo female with abdominal pain for two weeks. The patient had 2 days of chills and poor appetite. Found to have a fever of 103.1 F in ER. The patient was taken to Ultrasound and found to have dialated CBD and 1.3 cm stone blocking the CBD. The patient was started on Zosyn and Vancomycin. Zosyn alone will be adequate coverage. Patient is being admitted to the MICU for further monitoring. May need surgery versus ERCP. Would continue hydration of the patient with IV fluids. Supportive care. Thank you for allowing me to participate in the care of the patient, we will follow with you.
--- NOTE | 2017-01-12 17:10 | CARD ---
APPROVED REPORT EKG Measurement Heart [id number] <Conclusion> Sinus tachycardia Possible Left atrial enlargement Borderline ECG
--- NOTE | 2017-01-12 17:27 | US ---
HISTORY: r/o cholecystitis COMPARISON: CT abdomen and pelvis performed the same day with contrast. TECHNIQUE: Sonographic evaluation of the abdomen. FINDINGS: LIVER: Measures 15.6 cm in sagittal dimension. Echogenic liver may be seen in setting of hepatic parenchymal disease or fatty infiltration. No focal hepatic mass identified. The main portal vein appears patent with normal directional flow. GALLBLADDER: Cholelithiasis including within the gallbladder neck. Gallbladder sludge. Gallbladder wall thickening/ edema measuring up to 1.8 cm. Negative sonographic Ordoñez's sign as assessed by the senior litigation paralegal. COMMON BILE DUCT: Measures 1.6 cm. Intrahepatic biliary ductal dilatation. Probable calculus noted within the common bile duct measuring approximately 1.3 x 1.0 x 1.6 cm. PANCREAS: Not well visualized. RIGHT KIDNEY: Measures 9.6 x 4.8 x 3.4cm. No obstructing calculus or hydronephrosis identified. LEFT KIDNEY: Measures 9.8 x 5.2 x 4.0cm. No obstructing calculus or hydronephrosis identified. SPLEEN: Measures approximately 7.9 cm. AORTA: Limited views appear unremarkable. IVC: Limited views appear unremarkable. OTHER FINDINGS: None. IMPRESSION: Cholelithiasis including within the gallbladder neck. Gallbladder wall thickening and pericholecystic edema. Gallbladder sludge present. Negative sonographic Ordoñez's sign as assessed by the senior litigation paralegal. Correlate clinically for possibility of acute cholecystitis. Probable 1.6 cm calculus evident within the common bile duct which is dilated to 1.6 cm. Intrahepatic biliary ductal dilatation. Echogenic liver may be seen in setting of hepatic parenchymal disease or fatty infiltration.
[2017-01-12 17:38] LABS: VENOUS BLOOD GAS BASE EXCESS -1.7 mmol/L (0.0-2.0); VENOUS BLOOD PH 7.42 (7.32-7.43)
--- NOTE | 2017-01-12 17:57 | RAD ---
HISTORY: Sepsis Patient COMPARISON: No prior. FINDINGS: LUNGS: There are low lung volumes which may be related to poor inspiratory effort. There are fibrotic changes in the right upper lobe and tiny calcified granulomas. No focal consolidation. PLEURA: No significant pleural effusion identified, no pneumothorax apparent. CARDIOVASCULAR: Normal. OSSEOUS STRUCTURES: No significant abnormalities. VISUALIZED UPPER ABDOMEN: Normal. OTHER FINDINGS: None. IMPRESSION: No active pulmonary disease.
[2017-01-12] MEDS: Sodium Chloride 0.9% 1,000 ML IV SCH (18:00)
[2017-01-12] MEDS ORDERED: Morphine 2 mg/ml ISec IVP PRN (18:00)
[2017-01-12] MEDS ORDERED: POLYETHYLENE GLYCOL 3350 17 GM/Dose PACKET PO PRN (18:04)
--- NOTE | 2017-01-12 18:14 | PCM.SEPTIC ---
Sepsis Progress Note - Reassessment Type Date of Evaluation: 01/12/17 Time of Evaluation: 18:13 Reassessment Type: Non-invasive reassessment - Non Invasive Reassessment Were the most recent vital sign reviewed: Yes Vital Sign (Latest): Temp Pulse Resp BP Pulse Ox 97.8 F 77 12 112/66 100 01/12/17 16:14 01/12/17 17:17 01/12/17 17:17 01/12/17 17:17 01/12/17 17:17 Cardiovascular: Yes: Regular Rate, Rhythm Respiratory: Yes: Normal Breath Sounds. No: Accessory Muscle Use, Crackles, Rales, Rhonchi, Wheezing, Respiratory Distress Capillary Refill: Normal (Less than 2 sec) Pulses: Normal Radial, Normal Dorsalis Pedis Skin: Normal Color, Warm, Dry
[2017-01-12] MEDS: Piperacill/Tazo 4.5gm in NS 4.5 GM/100 ML BAG IVPB SCH ×2 (18:48→23:28)
--- NOTE | 2017-01-12 20:37 | MRI ---
EXAM: MR Abdomen Without Intravenous Contrast EXAM DATE/TIME: 01/12/2017 5:25 PM CLINICAL HISTORY: The patient age is 81 years old and is female; Pain; Abdominal pain; Generalized; Patient HX: Mrcp protocol was done; Additional info: Choledocolithiasis Facility exam id and description: Mri mrcp mrcp and abdomen w/o contrast TECHNIQUE: Multiplanar magnetic resonance images of the abdomen without intravenous contrast. COMPARISON: CT - ABD PELVIS PO IV CONTRAST 01/12/2017 2:37:44 PM FINDINGS: Liver: Gallbladder and bile ducts: There is intra-and extra hepatic biliary dilatation. Within the mid to distal common bile duct, there is a 1.8 x 1.7 cm obstructing hypointense gallstone. There is distention, lobulation, and internal septation of the gallbladder. Multiple hypointense gallstones are visualized within the gallbladder. Mild gallbladder wall thickening is identified, which can be associated with acute cholecystitis. Pancreas: No ductal dilation. Normal contour. Spleen: No splenomegaly. Adrenals: No mass. Kidneys and ureters: No hydronephrosis. No mass. Stomach and bowel: Colonic diverticula are visualized. No visualized distention. Intraperitoneal space: No significant fluid collection. Bones/joints: There is dextroscoliosis of the lumbar spine. Disc bulge/osteophyte complexes are visualized at multiple lumbar levels. There is mild retrolisthesis of L3 on L4 and L4 on L5. Vasculature: There is increased tortuosity of the aorta, without aneurysmal dilatation. Lymph nodes: No significant retroperitoneal lymphadenopathy. IMPRESSION: 1. There is intra-and extra hepatic biliary dilatation. Within the mid to distal common bile duct, there is a 1.8 x 1.7 cm obstructing gallstone. 2. There is distention, lobulation, and internal septation of the gallbladder. Multiple hypointense gallstones are visualized within the gallbladder. Mild gallbladder wall thickening is identified, which can be associated with acute cholecystitis. Surgical consultation is recommended. 3. Additional findings described above.
[2017-01-12 22:43] VITALS: BMI 26.9
[2017-01-12] MEDS ORDERED: Pneumococcal 23-Valent Vaccine IM ONE (22:43)
[2017-01-13] MEDS: Sodium Chloride 0.9% 1,000 ML IV SCH ×3 (00:52→19:36)
[2017-01-13] MEDS: Piperacill/Tazo 4.5gm in NS 4.5 GM/100 ML BAG IVPB SCH ×3 (05:08→18:15)
[2017-01-13 07:17] LABS: BASO # 0.02 K/mm3 (0.0-2.0); BASO % 0.2 % (0.0-3.0); EOS # 0.2 (0.0-0.7); EOS % 1.5 % (1.5-5.0); GRAN # 8.29 (1.4-6.5); GRAN % 72.7 % (50.0-68.0); HEMATOCRIT 37.7 % (36.0-48.0); LYMPH # 1.6 (1.2-3.4); LYMPH % 13.8 % (22.0-35.0); MEAN CELL VOLUME 93.1 fl (80.0-105.0); MEAN CORPUSCULAR HEMOGLOBIN 30.6 pg (25.0-35.0); MEAN CORPUSCULAR HGB CONC 32.9 g/dl (31.0-37.0); MONO # 1.4 (0.1-0.6); MONO % 11.8 % (1.0-6.0); RED CELL DISTRIBUTION WIDTH 13.8 % (11.5-14.5); WHITE BLOOD COUNT 11.4 10^3/ul (4.5-11.0)
[2017-01-13 07:37] LABS: ALB/GLOB RATIO 0.9 (1.1-1.8); ALKALINE PHOSPHATASE 157 U/L (38-126); ALT/SGPT 196 U/L (7-56); AST/SGOT 133 U/L (14-36); BILIRUBIN,DIRECT 5.8 mg/dL (0.0-0.4); BILIRUBIN,TOTAL 7.2 mg/dL (0.2-1.3); BLOOD UREA NITROGEN 11 mg/dL (7-21); CALCIUM 8.3 mg/dL (8.4-10.5); CARBON DIOXIDE 23 mmol/L (21-33); CHLORIDE 111 mmol/L (98-107); CHOLESTEROL 123 mg/dL (130-200); GFR AFRICAN-AMERICAN > 60; GLUCOSE,RANDOM 68 mg/dL (70-110); POTASSIUM 3.2 mmol/L (3.6-5.0); SODIUM 144 mmol/L (132-148); TOTAL PROTEIN 6.6 g/dL (5.8-8.3)
--- NOTE | 2017-01-13 07:51 | CP.PCM.CON ---
<Jose De Jesus Maguire - Last Filed: 01/13/17 16:06> History of Present Illness - History of Present Illness History of Present Illness: GI Consult Note 81 y/o F with PMH of HTN and HLD presents to the hospital for 2 week history of epigastric abdominal pain. Pt states she was brought to the hospital by her daughter. Pt states pain gradually became worse over 2 week span. Pain was noted to be sharp in nature, with no immediate alleviating or exacerbating factors at this time. There is radiation of the pain intermittently to the mid- back area. Pt said she has not had any nausea or vomiting, however she has been constipated. Over the past week, she had 1 bowel movement after she gave herself an enema at home 1 week ago. Otherwise, patient normally has bowel movements every 2-3 days. She admits to having decreased oral intake, flatulence , and feeling fatigued during this time. Pt also admits to feeling a slight subjective fever but no chills. Denies CP, SOB, N/V/D, dysphagia, melena, hematemesis, hematochezia. PMH: HTN, HLD PSH: None FMH: None Social Hx: Denies alcohol, tobacco, or illicit drug use Endo Hx: None Medication: Reviewed, as per chart. 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) - RENAL Hx Chronic Kidney Disease: No - ENDOCRINE/METABOLIC Hx Endocrine Disorders: No - HEMATOLOGICAL/ONCOLOGICAL Hx Blood Disorders: No - INTEGUMENTARY Hx Dermatological Problems: No - MUSCULOSKELETAL/RHEUMATOLOGICAL Hx Musculoskeletal Disorders: No Hx Falls: No - GASTROINTESTINAL Hx Gastrointestinal Disorders: Yes (CONSTIPATION) - GENITOURINARY/GYNECOLOGICAL Hx Genitourinary Disorders: No - PSYCHIATRIC Hx Psychophysiologic Disorder: Yes (USED TO DRINK OCCASIONAL BEER OR [email or web address].) Hx Substance Use: No - SURGICAL HISTORY Hx Surgeries: No Meds Allergies/Adverse Reactions: Allergies Allergy/AdvReac Type Severity Reaction Status Date / Time No Known Allergies Allergy Verified 01/12/17 19:31 - Medications Medications: Current Medications Heparin Sodium (Porcine) (Heparin) 5,000 units SC Q12 [facility] PRN Reason: Protocol Last Admin: 01/12/17 22:30 Dose: 5,000 units Sodium Chloride (Sodium Chloride 0.9%) 1,000 mls @ 150 mls/hr IV .Q6H40M [facility] Last Admin: 01/13/17 00:52 Dose: 150 mls/hr Piperacillin Sod/Tazobactam Sod (Zosyn 4.5 Gm In Ns 100ml) 4.5 gm in 100 mls @ 200 mls/hr IVPB Q6 [facility] PRN Reason: Protocol Last Admin: 01/13/17 05:08 Dose: 200 mls/hr Acetaminophen (Ofirmev) 650 mg in 65 mls @ 400 mls/hr IVPB Q6H PRN PRN Reason: Temperature Stop: 01/14/17 19:13 Morphine Sulfate (Morphine) 0.5 mg IVP Q4H PRN PRN Reason: Pain, moderate (4-7) Ondansetron HCl (Zofran Inj) 4 mg IVP Q6H PRN PRN Reason: Nausea/Vomiting Pantoprazole Sodium (Protonix Inj) 40 mg IVP DAILY [facility] Physical Exam - Constitutional Appears: Non-toxic, No Acute Distress - Head Exam Head Exam: ATRAUMATIC, NORMAL INSPECTION, NORMOCEPHALIC - Eye Exam Eye Exam: EOMI, Normal appearance - ENT Exam ENT Exam: Mucous Membranes Moist, Normal Exam - Respiratory Exam Respiratory Exam: Clear to Auscultation Bilateral, NORMAL BREATHING PATTERN. absent: Rales, Rhonchi, Wheezes - Cardiovascular Exam Cardiovascular Exam: Tachycardia, REGULAR RHYTHM, +S1, +S2 - GI/Abdominal Exam GI & Abdominal Exam: Distended, Hyperactive Bowel Sounds, Soft. absent: Firm, Rebound, Tenderness - Extremities Exam Extremities exam: Positive for: normal inspection. Negative for: calf tenderness, pedal edema - Neurological Exam Neurological exam: Alert, CN II-XII Intact, Oriented x3 - Psychiatric Exam Psychiatric exam: Normal Affect, Normal Mood - Skin Skin Exam: Intact, Normal Color, Warm Results - Vital Signs Recent Vital Signs: Last Vital Signs Temp 97.9 F 01/13/17 04:00 Pulse 73 01/12/17 22:24 Resp 22 01/12/17 22:24 BP 141/68 01/12/17 22:24 Pulse Ox 100 01/12/17 17:17 - Labs Result Diagrams: 01/13/17 06:45 01/13/17 06:45 Labs: Laboratory Results - last 24 hr 01/12/17 01/12/17 01/12/17 17:10 17:22 17:22 WBC RBC Hgb Hct MCV MCH MCHC RDW Plt Count MPV Gran % Lymph % (Auto) [place] % (Auto) Eos % (Auto) Baso % (Auto) Gran # Lymph # [place] # Eos # Baso # pO2 VBG pH VBG pCO2 VBG HCO3 VBG Total CO2 VBG O2 Sat (Calc) VBG Base Excess VBG Potassium Sodium Chloride Glucose Lactate FiO2 Potassium Carbon Dioxide Anion Gap BUN Creatinine Est GFR ( Amer) Est GFR (Non-Af Amer) POC Glucose (mg/dL) Random Glucose Calcium Total Bilirubin Direct Bilirubin 6.0 H AST ALT Alkaline Phosphatase Total Protein Albumin Globulin Albumin/Globulin Ratio Triglycerides Cholesterol HDL Cholesterol Amylase 61 Lipase 56 Venous Blood Potassium Acetaminophen < 10.0 L Hepatitis A IgM Ab Negative Hep Bs Antigen Negative Hep B Core IgM Ab Negative Hepatitis C Antibody Negative 01/12/17 01/12/17 01/13/17 17:22 22:05 06:45 WBC 11.4 H RBC 4.05 Hgb 12.4 D Hct 37.7 MCV 93.1 MCH 30.6 MCHC 32.9 RDW 13.8 Plt Count 237 MPV 10.0 Gran % 72.7 H Lymph % (Auto) 13.8 L [place] % (Auto) 11.8 H Eos % (Auto) 1.5 Baso % (Auto) 0.2 Gran # 8.29 H Lymph # 1.6 [place] # 1.4 H Eos # 0.2 Baso # 0.02 pO2 110 H VBG pH 7.42 VBG pCO2 34.0 L VBG HCO3 22.1 VBG Total CO2 23.1 VBG O2 Sat (Calc) 99.2 H VBG Base Excess -1.7 L VBG Potassium 3.3 L Sodium 135.0 Chloride 103.0 Glucose 135 H Lactate 1.3 FiO2 21.0 Potassium Carbon Dioxide Anion Gap BUN Creatinine Est GFR ( Amer) Est GFR (Non-Af Amer) POC Glucose (mg/dL) 104 Random Glucose Calcium Total Bilirubin Direct Bilirubin AST ALT Alkaline Phosphatase Total Protein Albumin Globulin Albumin/Globulin Ratio Triglycerides Cholesterol HDL Cholesterol Amylase Lipase Venous Blood Potassium 3.3 L Acetaminophen Hepatitis A IgM Ab Hep Bs Antigen Hep B Core IgM Ab Hepatitis C Antibody 01/13/17 06:45 WBC RBC Hgb Hct MCV MCH MCHC RDW Plt Count MPV Gran % Lymph % (Auto) [place] % (Auto) Eos % (Auto) Baso % (Auto) Gran # Lymph # [place] # Eos # Baso # pO2 VBG pH VBG pCO2 VBG HCO3 VBG Total CO2 VBG O2 Sat (Calc) VBG Base Excess VBG Potassium Sodium 144 Chloride 111 H Glucose Lactate FiO2 Potassium 3.2 L Carbon Dioxide 23 Anion Gap 13 BUN 11 Creatinine 0.5 Est GFR ( Amer) > 60 Est GFR (Non-Af Amer) > 60 POC Glucose (mg/dL) Random Glucose 68 L Calcium 8.3 L Total Bilirubin 7.2 H Direct Bilirubin 5.8 H AST 133 H D ALT 196 H Alkaline Phosphatase 157 H D Total Protein 6.6 Albumin 3.2 Globulin 3.4 Albumin/Globulin Ratio 0.9 L Triglycerides 58 Cholesterol 123 L HDL Cholesterol 42 Amylase Lipase Venous Blood Potassium Acetaminophen Hepatitis A IgM Ab Hep Bs Antigen Hep B Core IgM Ab Hepatitis C Antibody Assessment & Plan - Assessment and Plan (Free Text) Plan: 1. Choledocolithiasis 2. Cholangitis 3. Cholecystitis 4. Cholelithiasis 81 y/o F with PMH of HTN and HLD presents with choledocolithiasis. Pt underwent CT abdomen/pelvis which showed inflammation of the gallbladder along with gallstone. Abdominal US showed gallstone along with a 1.8 cm in the CBD. MRCP also confirmed results shown on ultrasound. Patient will benefit from ERCP. Pt has been evaluated by surgery and they are planning for surgery on an outpatient basis. Continue IVF and antibiotics at this time. Andrez, PGY-2 <Deon Ness - Last Filed: 01/13/17 19:17> Meds - Medications Medications: Current Medications Heparin Sodium (Porcine) (Heparin) 5,000 units SC Q12 [facility] PRN Reason: Protocol Last Admin: 01/12/17 22:30 Dose: 5,000 units Piperacillin Sod/Tazobactam Sod (Zosyn 4.5 Gm In Ns 100ml) 4.5 gm in 100 mls @ 200 mls/hr IVPB Q6 [facility] PRN Reason: Protocol Last Admin: 01/13/17 18:15 Dose: 200 mls/hr Acetaminophen (Ofirmev) 650 mg in 65 mls @ 400 mls/hr IVPB Q6H PRN PRN Reason: Temperature Stop: 01/14/17 19:13 Sodium Chloride (Sodium Chloride 0.9%) 1,000 mls @ 100 mls/hr IV .Q10H [facility] Morphine Sulfate (Morphine) 0.5 mg IVP Q4H PRN PRN Reason: Pain, moderate (4-7) Ondansetron HCl (Zofran Inj) 4 mg IVP Q6H PRN PRN Reason: Nausea/Vomiting Pantoprazole Sodium (Protonix Inj) 40 mg IVP DAILY [facility] Last Admin: 01/13/17 09:58 Dose: 40 mg Results - Vital Signs Recent Vital Signs: Last Vital Signs Temp 100.2 F H 01/13/17 08:00 Pulse 74 01/13/17 10:50 Resp 23 01/13/17 10:50 BP 147/54 L 01/13/17 10:00 Pulse Ox 100 01/13/17 12:40 - Labs Result Diagrams: 01/13/17 06:45 01/13/17 06:45 Labs: Laboratory Results - last 24 hr 01/12/17 01/12/17 01/13/17 17:22 22:05 06:45 WBC 11.4 H RBC 4.05 Hgb 12.4 D Hct 37.7 MCV 93.1 MCH 30.6 MCHC 32.9 RDW 13.8 Plt Count 237 MPV 10.0 Gran % 72.7 H Lymph % (Auto) 13.8 L [place] % (Auto) 11.8 H Eos % (Auto) 1.5 Baso % (Auto) 0.2 Gran # 8.29 H Lymph # 1.6 [place] # 1.4 H Eos # 0.2 Baso # 0.02 Sodium Potassium Chloride Carbon Dioxide Anion Gap BUN Creatinine Est GFR ( Amer) Est GFR (Non-Af Amer) POC Glucose (mg/dL) 104 Random Glucose Hemoglobin A1c Calcium Phosphorus Magnesium Total Bilirubin Direct Bilirubin AST ALT Alkaline Phosphatase Total Protein Albumin Globulin Albumin/Globulin Ratio Triglycerides Cholesterol LDL Cholesterol Direct HDL Cholesterol Procalcitonin Hepatitis A IgM Ab Negative Hep Bs Antigen Negative Hep B Core IgM Ab Negative Hepatitis C Antibody Negative 01/13/17 01/13/17 01/13/17 06:45 06:45 12:30 WBC RBC Hgb Hct MCV MCH MCHC RDW Plt Count MPV Gran % Lymph % (Auto) [place] % (Auto) Eos % (Auto) Baso % (Auto) Gran # Lymph # [place] # Eos # Baso # Sodium 144 Potassium 3.2 L Chloride 111 H Carbon Dioxide 23 Anion Gap 13 BUN 11 Creatinine 0.5 Est GFR ( Amer) > 60 Est GFR (Non-Af Amer) > 60 POC Glucose (mg/dL) Random Glucose 68 L Hemoglobin A1c 5.9 Calcium 8.3 L Phosphorus 2.1 L Magnesium 2.1 Total Bilirubin 7.2 H Direct Bilirubin 5.8 H AST 133 H D ALT 196 H Alkaline Phosphatase 157 H D Total Protein 6.6 Albumin 3.2 Globulin 3.4 Albumin/Globulin Ratio 0.9 L Triglycerides 58 Cholesterol 123 L LDL Cholesterol Direct 45 HDL Cholesterol 42 Procalcitonin 3.95 H Hepatitis A IgM Ab Hep Bs Antigen Hep B Core IgM Ab Hepatitis C Antibody 01/13/17 12:32 WBC RBC Hgb Hct MCV MCH MCHC RDW Plt Count MPV Gran % Lymph % (Auto) [place] % (Auto) Eos % (Auto) Baso % (Auto) Gran # Lymph # [place] # Eos # Baso # Sodium Potassium Chloride Carbon Dioxide Anion Gap BUN Creatinine Est GFR ( Amer) Est GFR (Non-Af Amer) POC Glucose (mg/dL) 88 Random Glucose Hemoglobin A1c Calcium Phosphorus Magnesium Total Bilirubin Direct Bilirubin AST ALT Alkaline Phosphatase Total Protein Albumin Globulin Albumin/Globulin Ratio Triglycerides Cholesterol LDL Cholesterol Direct HDL Cholesterol Procalcitonin Hepatitis A IgM Ab Hep Bs Antigen Hep B Core IgM Ab Hepatitis C Antibody Attending/Attestation - Attestation I have personally seen and examined this patient.: Yes I have fully participated in the care of the patient.: Yes I have reviewed all pertinent clinical information: Yes Notes (Text): 01/13/17 11:15 81 year old female with h/o HTN, HLD admitted with acute cholangitis, biliary obstruction 2/2 choledocholithiasis. 1. Acute cholangitis 2. Choledocholithiasis Plan: -recommend urgent ERCP today -continue broad spectrum abx -resuscitation per ICU -currently HD stable -NPO -d/w patient and family
[2017-01-13 08:25] LABS: MAGNESIUM 2.1 mg/dL (1.7-2.2); PHOSPHOROUS 2.1 mg/dL (2.5-4.5)
[2017-01-13] MEDS ORDERED: Sodium Phosphate 15 MMOLE in Sodium Chloride 0.9% 250 ML IVPB ONE (09:13)
[2017-01-13] MEDS ORDERED: Dextrose 50% SYRINGE Inj (50 ml) IVP ONE (09:15)
[2017-01-13] MEDS ORDERED: Potassium Phosphate 3 mmol/ml Inj IV ONE (09:16)
--- NOTE | 2017-01-13 09:38 | CP.PCM.PN ---
Subjective - Date & Time of Evaluation Date of Evaluation: 01/13/17 Time of Evaluation: 09:31 - Subjective Subjective: Progress note for Dr. Meier PT S&E at bedside. JOSEPHINE. Patient's T. Bili 7.2, 133/196 ALP 157 Procal 1.51, lipase 56, 61, K 3.2 repleted by Medicine team. Patient states she's feeling better today, admits to one normal BM overnight. Patient states no nausea, vomiting, fever, chills. Patient made aware that GI will see patient today. We will follow up with recommendations. Objective - Vital Signs/Intake and Output Vital Signs (last 24 hours): Temp Pulse Resp BP Pulse Ox 97.9 F 73 22 141/68 100 01/13/17 04:00 01/12/17 22:24 01/12/17 22:24 01/12/17 22:24 01/12/17 17:17 Intake and Output: 01/13/17 01/13/17 06:59 18:59 Intake Total 2000 Output Total 1100 Balance 900 - Medications Medications: Current Medications Heparin Sodium (Porcine) (Heparin) 5,000 units SC Q12 [facility] PRN Reason: Protocol Last Admin: 01/12/17 22:30 Dose: 5,000 units Piperacillin Sod/Tazobactam Sod (Zosyn 4.5 Gm In Ns 100ml) 4.5 gm in 100 mls @ 200 mls/hr IVPB Q6 [facility] PRN Reason: Protocol Last Admin: 01/13/17 05:08 Dose: 200 mls/hr Acetaminophen (Ofirmev) 650 mg in 65 mls @ 400 mls/hr IVPB Q6H PRN PRN Reason: Temperature Stop: 01/14/17 19:13 Potassium Chloride (Potassium Chloride 10 Meq/100 Ml) 10 meq in 100 mls @ 100 mls/hr IVPB Q2H [facility] Stop: 01/13/17 11:14 Last Admin: 01/13/17 08:20 Dose: 100 mls/hr Sodium Chloride (Sodium Chloride 0.9%) 1,000 mls @ 100 mls/hr IV .Q10H [facility] Sodium Phosphate 15 mmole/ (Sodium Chloride) 255 mls @ 42.5 mls/hr IVPB ONCE ONE Stop: 01/13/17 15:12 Potassium Phosphate 15 mmole/ (Sodium Chloride) 255 mls @ 42.5 mls/hr IVPB ONCE ONE Stop: 01/13/17 15:29 Morphine Sulfate (Morphine) 0.5 mg IVP Q4H PRN PRN Reason: Pain, moderate (4-7) Ondansetron HCl (Zofran Inj) 4 mg IVP Q6H PRN PRN Reason: Nausea/Vomiting Pantoprazole Sodium (Protonix Inj) 40 mg IVP DAILY [facility] - Labs Labs: 01/13/17 06:45 01/13/17 06:45 PT 12.3 Seconds (9.9-11.8) H 01/12/17 12:50 INR 1.14 (0.93-1.08) H 01/12/17 12:50 APTT 26.8 Seconds (23.7-30.8) 01/12/17 12:50 - Constitutional Appears: Non-toxic - Head Exam Head Exam: NORMAL INSPECTION - Eye Exam Eye Exam: EOMI, Normal appearance, Scleral icterus - ENT Exam ENT Exam: Mucous Membranes Moist - Neck Exam Neck Exam: Full ROM. absent: Tenderness - Respiratory Exam Respiratory Exam: Clear to Ausculation Bilateral, NORMAL BREATHING PATTERN. absent: Accessory Muscle Use, Respiratory Distress - Cardiovascular Exam Cardiovascular Exam: REGULAR RHYTHM - GI/Abdominal Exam GI & Abdominal Exam: Soft. absent: Rigid, Tenderness, Rebound Additional comments: palpable gallbladder - Extremities Exam Extremities Exam: absent: Calf Tenderness, Pedal Edema - Neurological Exam Neurological Exam: Alert, Awake, Normal Gait - Psychiatric Exam Psychiatric exam: Normal Affect, Normal Mood - Skin Skin Exam: Dry, Intact, Normal Color, Warm Assessment and Plan - Assessment and Plan (Free Text) Assessment: 81F presents with abdominal pain, choledocholithiasis and cholecystitis. Plan: c/w IVF (NS @ 150) monitor vitals c/w antibiotics per primary f/u lipase, amylase f/u ERCP and GI recommendations Cholecystectomy to be scheduled for outpatient monitor for mental status changes Sharla Blandon DO PGY1
[2017-01-13] MEDS ORDERED: Iohexol 240 (50 ml) ONE (10:35)
[2017-01-13] MEDS ORDERED: Indomethacin 50 MG Suppository PR ONE (10:36)
--- NOTE | 2017-01-13 11:29 | CP.CCUPN ---
<MIKE REAL - Last Filed: 01/13/17 11:23> CCU Subjective - Physician Review Subjective (Free Text): 01/13/17 11:23 Patient seen and assessed at bedside. Patient reports no events overnight and is fully aware of plan for ERCP later today, for which she has agreed to undergo. Patient reports being asymptomatic. Patient denies fever, headache, changes in her vision, dysphagia, chest pain, palpitations, cough, shortness of breath, abdominal pain, N/V, diarrhea or constipation. Patient endorses one solid BM overnight. CCU Objective - Vital Signs / Intake & Output Vital Signs (Last 4 hours): Vital Signs Temp Pulse Resp BP Pulse Ox 01/13/17 10:50 74 23 100 01/13/17 10:40 77 19 01/13/17 10:30 76 14 98 01/13/17 10:20 82 22 98 01/13/17 10:10 78 17 100 01/13/17 10:00 79 17 147/54 L 93 L 01/13/17 09:50 84 19 01/13/17 09:40 83 18 01/13/17 09:30 76 22 01/13/17 09:26 78 25 H 147/63 95 01/13/17 09:20 88 28 H 86 L 01/13/17 09:10 74 16 01/13/17 09:00 74 15 01/13/17 08:50 77 23 01/13/17 08:40 76 18 01/13/17 08:30 75 15 01/13/17 08:20 76 16 01/13/17 08:10 81 17 42 L 01/13/17 08:00 100.2 F H 75 15 01/13/17 07:50 78 15 01/13/17 07:40 77 23 01/13/17 07:35 81 24 Intake and Output (Last 8hrs): Intake & Output 01/12/17 01/13/17 01/13/17 22:59 06:59 14:59 Intake Total 2350 2000 Output Total 700 1100 Balance 1650 900 Weight 147 lb 167 lb Intake: IV 2350 2000 Left Forearm 2350 2000 Output: Urine 700 1100 Urine, Voided 700 1100 Other: Voiding Method Bedside Commode Bedside Commode # Voids Urine, Voided 2 # Bowel Movements 0 - Physical Exam Head: Positive for: Atraumatic, Normocephalic Pupils: Positive for: PERRL Extroacular Muscles: Positive for: EOMI Conjunctiva: Positive for: Icteric Ears: Positive for: Normal Mouth: Positive for: Moist Mucous Membranes Pharnyx: Positive for: Normal Nose (External): Positive for: Atraumatic Neck: Positive for: Normal Range of Motion, Trachea Midline. Negative for: JVD , Lymphadenopathy Respiratory/Chest: Positive for: Clear to Auscultation, Good Air Exchange. Negative for: Respiratory Distress, Accessory Muscle Use, Wheezes, Decreased Breath Sounds, Rales, Rhonchi, Tachypneic Cardiovascular: Positive for: Regular Rate and Rhythm, Normal S1, S2. Negative for: Murmurs, Irregular Rhythm, Tachycardic, Bradycardic Abdomen: Positive for: Normal Bowel Sounds. Negative for: Tenderness, Distention, Peritoneal Signs, Rebound Back: Positive for: Normal Inspection. Negative for: Midline Tenderness, Paraspinal Tenderness Upper Extremity: Positive for: Normal Inspection. Negative for: Cyanosis, Edema Lower Extremity: Positive for: Normal Inspection. Negative for: Edema Neurological: Positive for: GCS=15, CN II-XII Intact, Speech Normal Skin: Positive for: Warm, Dry, Normal Color. Negative for: Rashes Psychiatric: Positive for: Alert, Oriented x 3, Normal Insight, Normal Concentration - Medications Active Medications: Active Medications Generic Name Dose Route Start Last Admin Trade Name Freq PRN Reason Stop Dose Admin Heparin Sodium (Porcine) 5,000 units 01/12/17 22:00 01/12/17 22:30 Heparin SC 5,000 units Q12 THERESA Administration Protocol Piperacillin Sod/Tazobactam Sod 4.5 gm in 100 mls @ 200 mls/hr 01/12/17 18:00 01/13/17 05:08 Zosyn 4.5 Gm In Ns 100ml IVPB 200 mls/hr Q6 THERESA Administration Protocol Acetaminophen 650 mg in 65 mls @ 400 mls/hr 01/12/17 19:12 Ofirmev IVPB 01/14/17 19:13 Q6H PRN Temperature Sodium Chloride 1,000 mls @ 100 mls/hr 01/13/17 09:04 Sodium Chloride 0.9% IV .Q10H THERESA Sodium Phosphate 15 mmole/ 255 mls @ 42.5 mls/hr 01/13/17 09:13 01/13/17 10: 58 Sodium Chloride IVPB 01/13/17 15:12 42.5 mls/hr ONCE ONE Administration Potassium Phosphate 15 mmole/ 255 mls @ 42.5 mls/hr 01/13/17 09:30 Sodium Chloride IVPB 01/13/17 15:29 ONCE ONE Morphine Sulfate 0.5 mg 01/12/17 18:00 Morphine IVP Q4H PRN Pain, moderate (4-7) Ondansetron HCl 4 mg 01/12/17 18:00 Zofran Inj IVP Q6H PRN Nausea/Vomiting Pantoprazole Sodium 40 mg 01/13/17 10:00 01/13/17 09:58 Protonix Inj IVP 40 mg DAILY THERESA Administration - Patient Studies Lab Studies: Lab Studies 01/13/17 01/13/17 01/12/17 Range/Units 06:45 06:45 22:05 WBC 11.4 H (4.5-11.0) 10^3/ul RBC 4.05 (3.5-6.1) 10^6/uL Hgb 12.4 D (12.0-16.0) g/dL Hct 37.7 (36.0-48.0) % MCV 93.1 (80.0-105.0) fl MCH 30.6 (25.0-35.0) pg MCHC 32.9 (31.0-37.0) g/dl RDW 13.8 (11.5-14.5) % Plt Count 237 (120.0-450.0) 10^3/uL MPV 10.0 (7.0-11.0) fl Gran % 72.7 H (50.0-68.0) % Lymph % (Auto) 13.8 L (22.0-35.0) % [place] % (Auto) 11.8 H (1.0-6.0) % Eos % (Auto) 1.5 (1.5-5.0) % Baso % (Auto) 0.2 (0.0-3.0) % Gran # 8.29 H (1.4-6.5) Lymph # 1.6 (1.2-3.4) [place] # 1.4 H (0.1-0.6) Eos # 0.2 (0.0-0.7) Baso # 0.02 (0.0-2.0) K/mm3 pO2 (30-55) mm/Hg VBG pH (7.32-7.43) VBG pCO2 (40-60) VBG HCO3 (21-28) mmol/l VBG Total CO2 (22-28) mmol.L VBG O2 Sat (Calc) (40-65) % VBG Base Excess (0.0-2.0) mmol/L VBG Potassium (3.6-5.2) mmol/L Sodium 144 (132-148) mmol/L Chloride 111 H (98-107) mmol/L Glucose (65-105) mg/dl Lactate (0.7-2.1) mmol/L FiO2 % Potassium 3.2 L (3.6-5.0) mmol/L Carbon Dioxide 23 (21-33) mmol/L Anion Gap 13 (10-20) BUN 11 (7-21) mg/dL Creatinine 0.5 (0.5-1.4) mg/dL Est GFR ( Amer) > 60 Est GFR (Non-Af Amer) > 60 POC Glucose (mg/dL) 104 (65-110) mg/dL Random Glucose 68 L (70-110) mg/dL Calcium 8.3 L (8.4-10.5) mg/dL Phosphorus 2.1 L (2.5-4.5) mg/dL Magnesium 2.1 (1.7-2.2) mg/dL Total Bilirubin 7.2 H (0.2-1.3) mg/dL Direct Bilirubin 5.8 H (0.0-0.4) mg/dL AST 133 H D (14-36) U/L ALT 196 H (7-56) U/L Alkaline Phosphatase 157 H D (38-126) U/L Total Protein 6.6 (5.8-8.3) g/dL Albumin 3.2 (3.0-4.8) g/dL Globulin 3.4 gm/dL Albumin/Globulin Ratio 0.9 L (1.1-1.8) Triglycerides 58 (35-160) mg/dL Cholesterol 123 L (130-200) mg/dL LDL Cholesterol Direct 45 (0-129) mg/dL HDL Cholesterol 42 (29-60) mg/dL Amylase (35-125) U/L Lipase (23-300) U/L Venous Blood Potassium (3.6-5.2) mmol/L Acetaminophen (10.0-20.0) ug/ml Hepatitis A IgM Ab (NEGATIVE) Hep Bs Antigen (NEGATIVE) Hep B Core IgM Ab (NEGATIVE) Hepatitis C Antibody (NEGATIVE) 01/12/17 01/12/17 01/12/17 Range/Units 17:22 17:22 17:22 WBC (4.5-11.0) 10^3/ul RBC (3.5-6.1) 10^6/uL Hgb (12.0-16.0) g/dL Hct (36.0-48.0) % MCV (80.0-105.0) fl MCH (25.0-35.0) pg MCHC (31.0-37.0) g/dl RDW (11.5-14.5) % Plt Count (120.0-450.0) 10^3/uL MPV (7.0-11.0) fl Gran % (50.0-68.0) % Lymph % (Auto) (22.0-35.0) % [place] % (Auto) (1.0-6.0) % Eos % (Auto) (1.5-5.0) % Baso % (Auto) (0.0-3.0) % Gran # (1.4-6.5) Lymph # (1.2-3.4) [place] # (0.1-0.6) Eos # (0.0-0.7) Baso # (0.0-2.0) K/mm3 pO2 110 H (30-55) mm/Hg VBG pH 7.42 (7.32-7.43) VBG pCO2 34.0 L (40-60) VBG HCO3 22.1 (21-28) mmol/l VBG Total CO2 23.1 (22-28) mmol.L VBG O2 Sat (Calc) 99.2 H (40-65) % VBG Base Excess -1.7 L (0.0-2.0) mmol/L VBG Potassium 3.3 L (3.6-5.2) mmol/L Sodium 135.0 (132-148) mmol/L Chloride 103.0 (98-107) mmol/L Glucose 135 H (65-105) mg/dl Lactate 1.3 (0.7-2.1) mmol/L FiO2 21.0 % Potassium (3.6-5.0) mmol/L Carbon Dioxide (21-33) mmol/L Anion Gap (10-20) BUN (7-21) mg/dL Creatinine (0.5-1.4) mg/dL Est GFR ( Amer) Est GFR (Non-Af Amer) POC Glucose (mg/dL) (65-110) mg/dL Random Glucose (70-110) mg/dL Calcium (8.4-10.5) mg/dL Phosphorus (2.5-4.5) mg/dL Magnesium (1.7-2.2) mg/dL Total Bilirubin (0.2-1.3) mg/dL Direct Bilirubin (0.0-0.4) mg/dL AST (14-36) U/L ALT (7-56) U/L Alkaline Phosphatase (38-126) U/L Total Protein (5.8-8.3) g/dL Albumin (3.0-4.8) g/dL Globulin gm/dL Albumin/Globulin Ratio (1.1-1.8) Triglycerides (35-160) mg/dL Cholesterol (130-200) mg/dL LDL Cholesterol Direct (0-129) mg/dL HDL Cholesterol (29-60) mg/dL Amylase (35-125) U/L Lipase (23-300) U/L Venous Blood Potassium 3.3 L (3.6-5.2) mmol/L Acetaminophen < 10.0 L (10.0-20.0) ug/ml Hepatitis A IgM Ab Negative (NEGATIVE) Hep Bs Antigen Negative (NEGATIVE) Hep B Core IgM Ab Negative (NEGATIVE) Hepatitis C Antibody Negative (NEGATIVE) 01/12/17 Range/Units 17:10 WBC (4.5-11.0) 10^3/ul RBC (3.5-6.1) 10^6/uL Hgb (12.0-16.0) g/dL Hct (36.0-48.0) % MCV (80.0-105.0) fl MCH (25.0-35.0) pg MCHC (31.0-37.0) g/dl RDW (11.5-14.5) % Plt Count (120.0-450.0) 10^3/uL MPV (7.0-11.0) fl Gran % (50.0-68.0) % Lymph % (Auto) (22.0-35.0) % [place] % (Auto) (1.0-6.0) % Eos % (Auto) (1.5-5.0) % Baso % (Auto) (0.0-3.0) % Gran # (1.4-6.5) Lymph # (1.2-3.4) [place] # (0.1-0.6) Eos # (0.0-0.7) Baso # (0.0-2.0) K/mm3 pO2 (30-55) mm/Hg VBG pH (7.32-7.43) VBG pCO2 (40-60) VBG HCO3 (21-28) mmol/l VBG Total CO2 (22-28) mmol.L VBG O2 Sat (Calc) (40-65) % VBG Base Excess (0.0-2.0) mmol/L VBG Potassium (3.6-5.2) mmol/L Sodium (132-148) mmol/L Chloride (98-107) mmol/L Glucose (65-105) mg/dl Lactate (0.7-2.1) mmol/L FiO2 % Potassium (3.6-5.0) mmol/L Carbon Dioxide (21-33) mmol/L Anion Gap (10-20) BUN (7-21) mg/dL Creatinine (0.5-1.4) mg/dL Est GFR ( Amer) Est GFR (Non-Af Amer) POC Glucose (mg/dL) (65-110) mg/dL Random Glucose (70-110) mg/dL Calcium (8.4-10.5) mg/dL Phosphorus (2.5-4.5) mg/dL Magnesium (1.7-2.2) mg/dL Total Bilirubin (0.2-1.3) mg/dL Direct Bilirubin 6.0 H (0.0-0.4) mg/dL AST (14-36) U/L ALT (7-56) U/L Alkaline Phosphatase (38-126) U/L Total Protein (5.8-8.3) g/dL Albumin (3.0-4.8) g/dL Globulin gm/dL Albumin/Globulin Ratio (1.1-1.8) Triglycerides (35-160) mg/dL Cholesterol (130-200) mg/dL LDL Cholesterol Direct (0-129) mg/dL HDL Cholesterol (29-60) mg/dL Amylase 61 (35-125) U/L Lipase 56 (23-300) U/L Venous Blood Potassium (3.6-5.2) mmol/L Acetaminophen (10.0-20.0) ug/ml Hepatitis A IgM Ab (NEGATIVE) Hep Bs Antigen (NEGATIVE) Hep B Core IgM Ab (NEGATIVE) Hepatitis C Antibody (NEGATIVE) Laboratory Results - last 24 hr 01/12/17 01/12/17 01/12/17 17:10 17:22 17:22 WBC RBC Hgb Hct MCV MCH MCHC RDW Plt Count MPV Gran % Lymph % (Auto) [place] % (Auto) Eos % (Auto) Baso % (Auto) Gran # Lymph # [place] # Eos # Baso # pO2 VBG pH VBG pCO2 VBG HCO3 VBG Total CO2 VBG O2 Sat (Calc) VBG Base Excess VBG Potassium Sodium Chloride Glucose Lactate FiO2 Potassium Carbon Dioxide Anion Gap BUN Creatinine Est GFR ( Amer) Est GFR (Non-Af Amer) POC Glucose (mg/dL) Random Glucose Calcium Phosphorus Magnesium Total Bilirubin Direct Bilirubin 6.0 H AST ALT Alkaline Phosphatase Total Protein Albumin Globulin Albumin/Globulin Ratio Triglycerides Cholesterol LDL Cholesterol Direct HDL Cholesterol Amylase 61 Lipase 56 Venous Blood Potassium Acetaminophen < 10.0 L Hepatitis A IgM Ab Negative Hep Bs Antigen Negative Hep B Core IgM Ab Negative Hepatitis C Antibody Negative 01/12/17 01/12/17 01/13/17 17:22 22:05 06:45 WBC 11.4 H RBC 4.05 Hgb 12.4 D Hct 37.7 MCV 93.1 MCH 30.6 MCHC 32.9 RDW 13.8 Plt Count 237 MPV 10.0 Gran % 72.7 H Lymph % (Auto) 13.8 L [place] % (Auto) 11.8 H Eos % (Auto) 1.5 Baso % (Auto) 0.2 Gran # 8.29 H Lymph # 1.6 [place] # 1.4 H Eos # 0.2 Baso # 0.02 pO2 110 H VBG pH 7.42 VBG pCO2 34.0 L VBG HCO3 22.1 VBG Total CO2 23.1 VBG O2 Sat (Calc) 99.2 H VBG Base Excess -1.7 L VBG Potassium 3.3 L Sodium 135.0 Chloride 103.0 Glucose 135 H Lactate 1.3 FiO2 21.0 Potassium Carbon Dioxide Anion Gap BUN Creatinine Est GFR ( Amer) Est GFR (Non-Af Amer) POC Glucose (mg/dL) 104 Random Glucose Calcium Phosphorus Magnesium Total Bilirubin Direct Bilirubin AST ALT Alkaline Phosphatase Total Protein Albumin Globulin Albumin/Globulin Ratio Triglycerides Cholesterol LDL Cholesterol Direct HDL Cholesterol Amylase Lipase Venous Blood Potassium 3.3 L Acetaminophen Hepatitis A IgM Ab Hep Bs Antigen Hep B Core IgM Ab Hepatitis C Antibody 01/13/17 06:45 WBC RBC Hgb Hct MCV MCH MCHC RDW Plt Count MPV Gran % Lymph % (Auto) [place] % (Auto) Eos % (Auto) Baso % (Auto) Gran # Lymph # [place] # Eos # Baso # pO2 VBG pH VBG pCO2 VBG HCO3 VBG Total CO2 VBG O2 Sat (Calc) VBG Base Excess VBG Potassium Sodium 144 Chloride 111 H Glucose Lactate FiO2 Potassium 3.2 L Carbon Dioxide 23 Anion Gap 13 BUN 11 Creatinine 0.5 Est GFR ( Amer) > 60 Est GFR (Non-Af Amer) > 60 POC Glucose (mg/dL) Random Glucose 68 L Calcium 8.3 L Phosphorus 2.1 L Magnesium 2.1 Total Bilirubin 7.2 H Direct Bilirubin 5.8 H AST 133 H D ALT 196 H Alkaline Phosphatase 157 H D Total Protein 6.6 Albumin 3.2 Globulin 3.4 Albumin/Globulin Ratio 0.9 L Triglycerides 58 Cholesterol 123 L LDL Cholesterol Direct 45 HDL Cholesterol 42 Amylase Lipase Venous Blood Potassium Acetaminophen Hepatitis A IgM Ab Hep Bs Antigen Hep B Core IgM Ab Hepatitis C Antibody Fingerstick Blood Sugar Results: 65 Review of Systems - Review of Systems Review of Systems: Please refer to HPI Critical Care Progress Note - Ventilator Checklist Head of Bed 30 Degrees: Yes PUD Prophalyxis: Yes DVT Prophylaxis: Yes - Nutrition Nutrition: Nutrition Category Date Time Status NPO Diet [DIET] Diets 01/12/17 Dinner Ordered Assessment/Plan - Assessment and Plan (Free Text) Assessment: 81 year old AA female with a past medical history significant for HTN, HLD, who was admitted to the ICU for sepsis and found to cholecystitis, cholelithiasis, and choledocholithiasis with plans for ERCP on 01/13. Plan: Cardio: -EKG done on 01/12 showed Sinus tachycardia with possible left atrial enlargement -Currently holding home Bisoprolol/HCTZ and Olmesartan for ERCP -Single troponin negative at 0.02 GI: -CT Abdomen/Pelvis showed that her gallbladder is enlarged with some mural thickening, septations and possible lucent stones, cystic duct dilatation, and possibles secondary obstruction of the upper common duct. It also showed intrahepatic ductal dilatation especially in the left lobe. -Abdominal U/S showed cholelithiasis within gallbladder neck, gallbladder wall thickening, pericholecystic edema and sludge present with negative sonographic Ordoñez's sign It also showed 1.6 cm calculus evident within the common bile duct which is dilated to 1.6 cm. -MRCP showed 1.8 x 1.7 cm obstructing gallstone, distention, lobulation, and internal septation of the gallbladder, multiple hypointense gallstones visualized within the gallbladder, and mild gallbladder wall thickening, which can be associated with acute cholecystitis. -Plan for ERCP at 1200 on 01/13, per GI -Surgery recommends outpatient cholecystectomy upon discharge -IVF: NS at 100mls/hr -Pain Control: Morphine 0.5mg IVP Q4H PRN -Continue Zosyn 4.5gm IVPB Q6H -Continue Zofran 4mg IVP Q4H PRN for N/V -LFT's and T.Bili currently downtrending -Lipase/Amylase within normal limits -Hepatitis panel negative and Acetaminophen levels within normal limits -Continue NPO diet and will start regular diet after ERCP as tolerated -GI and Surgery consulted, appreciate all recommendations Renal: -BUN/Creatinine stable at 11/0.5 -Hypokalemia at 3.2 replenished with two 10ml K-Riders IV -UOP: 1800cc Endo: -BS at 68 on AM of 01/13 -Given one amp of D5W -Maintain euglycemia with BS between 140 and 180 ID: -Chest X-Ray done on 01/12 showed no active pulmonary disease -UA showed no signs of UTI -Currently afebrile, normotensive, non-tachycardic with leukocytosis downtrending at 11.4 from 12.7 -Repeat lactate downtrending at 1.3 from 2.3 -Previous procal at 1.51 with repeat pending -Blood, urine and MRSA cultures pending -Continue Ofirmev 650mg IVPB Q6H -ID consulted, appreciate all recommendations GI Prophylaxis: Protonix DVT Prophylaxis: Heparin (Held this AM for ERCP) Disposition: ERCP later today and discharge tomorrow, pending HDS and patients clinical condition. Patient seen and case discussed with attending, Dr. Mccord. - Date & Time Date: 01/13/17 Time: 11:32 <Howard Mccord - Last Filed: 01/13/17 15:21> CCU Objective - Vital Signs / Intake & Output Vital Signs (Last 4 hours): Vital Signs Pulse Ox 01/13/17 12:40 100 Intake and Output (Last 8hrs): Intake & Output 01/13/17 01/13/17 01/13/17 06:59 14:59 22:59 Intake Total 2000 Output Total 1100 Balance 900 Weight 167 lb Intake: IV 2000 Left Forearm 2000 Output: Urine 1100 Urine, Voided 1100 Other: Voiding Method Bedside Commode - Medications Active Medications: Active Medications Generic Name Dose Route Start Last Admin Trade Name Freq PRN Reason Stop Dose Admin Heparin Sodium (Porcine) 5,000 units 01/12/17 22:00 01/12/17 22:30 Heparin SC 5,000 units Q12 THERESA Administration Protocol Piperacillin Sod/Tazobactam Sod 4.5 gm in 100 mls @ 200 mls/hr 01/12/17 18:00 01/13/17 12:07 Zosyn 4.5 Gm In Ns 100ml IVPB 200 mls/hr Q6 THERESA Administration Protocol Acetaminophen 650 mg in 65 mls @ 400 mls/hr 01/12/17 19:12 Ofirmev IVPB 01/14/17 19:13 Q6H PRN Temperature Sodium Chloride 1,000 mls @ 100 mls/hr 01/13/17 09:04 Sodium Chloride 0.9% IV .Q10H THERESA Potassium Phosphate 15 mmole/ 255 mls @ 42.5 mls/hr 01/13/17 09:30 01/13/17 14:42 Sodium Chloride IVPB 01/13/17 15:29 42.5 mls/hr ONCE ONE Administration Morphine Sulfate 0.5 mg 01/12/17 18:00 Morphine IVP Q4H PRN Pain, moderate (4-7) Ondansetron HCl 4 mg 01/12/17 18:00 Zofran Inj IVP Q6H PRN Nausea/Vomiting Pantoprazole Sodium 40 mg 01/13/17 10:00 01/13/17 09:58 Protonix Inj IVP 40 mg DAILY THERESA Administration - Patient Studies Lab Studies: Lab Studies 01/13/17 01/13/17 01/13/17 Range/Units 06:45 06:45 06:45 WBC 11.4 H (4.5-11.0) 10^3/ul RBC 4.05 (3.5-6.1) 10^6/uL Hgb 12.4 D (12.0-16.0) g/dL Hct 37.7 (36.0-48.0) % MCV 93.1 (80.0-105.0) fl MCH 30.6 (25.0-35.0) pg MCHC 32.9 (31.0-37.0) g/dl RDW 13.8 (11.5-14.5) % Plt Count 237 (120.0-450.0) 10^3/uL MPV 10.0 (7.0-11.0) fl Gran % 72.7 H (50.0-68.0) % Lymph % (Auto) 13.8 L (22.0-35.0) % [place] % (Auto) 11.8 H (1.0-6.0) % Eos % (Auto) 1.5 (1.5-5.0) % Baso % (Auto) 0.2 (0.0-3.0) % Gran # 8.29 H (1.4-6.5) Lymph # 1.6 (1.2-3.4) [place] # 1.4 H (0.1-0.6) Eos # 0.2 (0.0-0.7) Baso # 0.02 (0.0-2.0) K/mm3 pO2 (30-55) mm/Hg VBG pH (7.32-7.43) VBG pCO2 (40-60) VBG HCO3 (21-28) mmol/l VBG Total CO2 (22-28) mmol.L VBG O2 Sat (Calc) (40-65) % VBG Base Excess (0.0-2.0) mmol/L VBG Potassium (3.6-5.2) mmol/L Sodium 144 (132-148) mmol/L Chloride 111 H (98-107) mmol/L Glucose (65-105) mg/dl Lactate (0.7-2.1) mmol/L FiO2 % Potassium 3.2 L (3.6-5.0) mmol/L Carbon Dioxide 23 (21-33) mmol/L Anion Gap 13 (10-20) BUN 11 (7-21) mg/dL Creatinine 0.5 (0.5-1.4) mg/dL Est GFR ( Amer) > 60 Est GFR (Non-Af Amer) > 60 POC Glucose (mg/dL) (65-110) mg/dL Random Glucose 68 L (70-110) mg/dL Hemoglobin A1c 5.9 (4.2-6.5) % Calcium 8.3 L (8.4-10.5) mg/dL Phosphorus 2.1 L (2.5-4.5) mg/dL Magnesium 2.1 (1.7-2.2) mg/dL Total Bilirubin 7.2 H (0.2-1.3) mg/dL Direct Bilirubin 5.8 H (0.0-0.4) mg/dL AST 133 H D (14-36) U/L ALT 196 H (7-56) U/L Alkaline Phosphatase 157 H D (38-126) U/L Total Protein 6.6 (5.8-8.3) g/dL Albumin 3.2 (3.0-4.8) g/dL Globulin 3.4 gm/dL Albumin/Globulin Ratio 0.9 L (1.1-1.8) Triglycerides 58 (35-160) mg/dL Cholesterol 123 L (130-200) mg/dL LDL Cholesterol Direct 45 (0-129) mg/dL HDL Cholesterol 42 (29-60) mg/dL Amylase (35-125) U/L Lipase (23-300) U/L Venous Blood Potassium (3.6-5.2) mmol/L Acetaminophen (10.0-20.0) ug/ml Hepatitis A IgM Ab (NEGATIVE) Hep Bs Antigen (NEGATIVE) Hep B Core IgM Ab (NEGATIVE) Hepatitis C Antibody (NEGATIVE) 01/12/17 01/12/17 01/12/17 Range/Units 22:05 17:22 17:22 WBC (4.5-11.0) 10^3/ul RBC (3.5-6.1) 10^6/uL Hgb (12.0-16.0) g/dL Hct (36.0-48.0) % MCV (80.0-105.0) fl MCH (25.0-35.0) pg MCHC (31.0-37.0) g/dl RDW (11.5-14.5) % Plt Count (120.0-450.0) 10^3/uL MPV (7.0-11.0) fl Gran % (50.0-68.0) % Lymph % (Auto) (22.0-35.0) % [place] % (Auto) (1.0-6.0) % Eos % (Auto) (1.5-5.0) % Baso % (Auto) (0.0-3.0) % Gran # (1.4-6.5) Lymph # (1.2-3.4) [place] # (0.1-0.6) Eos # (0.0-0.7) Baso # (0.0-2.0) K/mm3 pO2 110 H (30-55) mm/Hg VBG pH 7.42 (7.32-7.43) VBG pCO2 34.0 L (40-60) VBG HCO3 22.1 (21-28) mmol/l VBG Total CO2 23.1 (22-28) mmol.L VBG O2 Sat (Calc) 99.2 H (40-65) % VBG Base Excess -1.7 L (0.0-2.0) mmol/L VBG Potassium 3.3 L (3.6-5.2) mmol/L Sodium 135.0 (132-148) mmol/L Chloride 103.0 (98-107) mmol/L Glucose 135 H (65-105) mg/dl Lactate 1.3 (0.7-2.1) mmol/L FiO2 21.0 % Potassium (3.6-5.0) mmol/L Carbon Dioxide (21-33) mmol/L Anion Gap (10-20) BUN (7-21) mg/dL Creatinine (0.5-1.4) mg/dL Est GFR ( Amer) Est GFR (Non-Af Amer) POC Glucose (mg/dL) 104 (65-110) mg/dL Random Glucose (70-110) mg/dL Hemoglobin A1c (4.2-6.5) % Calcium (8.4-10.5) mg/dL Phosphorus (2.5-4.5) mg/dL Magnesium (1.7-2.2) mg/dL Total Bilirubin (0.2-1.3) mg/dL Direct Bilirubin (0.0-0.4) mg/dL AST (14-36) U/L ALT (7-56) U/L Alkaline Phosphatase (38-126) U/L Total Protein (5.8-8.3) g/dL Albumin (3.0-4.8) g/dL Globulin gm/dL Albumin/Globulin Ratio (1.1-1.8) Triglycerides (35-160) mg/dL Cholesterol (130-200) mg/dL LDL Cholesterol Direct (0-129) mg/dL HDL Cholesterol (29-60) mg/dL Amylase (35-125) U/L Lipase (23-300) U/L Venous Blood Potassium 3.3 L (3.6-5.2) mmol/L Acetaminophen < 10.0 L (10.0-20.0) ug/ml Hepatitis A IgM Ab (NEGATIVE) Hep Bs Antigen (NEGATIVE) Hep B Core IgM Ab (NEGATIVE) Hepatitis C Antibody (NEGATIVE) 01/12/17 01/12/17 Range/Units 17:22 17:10 WBC (4.5-11.0) 10^3/ul RBC (3.5-6.1) 10^6/uL Hgb (12.0-16.0) g/dL Hct (36.0-48.0) % MCV (80.0-105.0) fl MCH (25.0-35.0) pg MCHC (31.0-37.0) g/dl RDW (11.5-14.5) % Plt Count (120.0-450.0) 10^3/uL MPV (7.0-11.0) fl Gran % (50.0-68.0) % Lymph % (Auto) (22.0-35.0) % [place] % (Auto) (1.0-6.0) % Eos % (Auto) (1.5-5.0) % Baso % (Auto) (0.0-3.0) % Gran # (1.4-6.5) Lymph # (1.2-3.4) [place] # (0.1-0.6) Eos # (0.0-0.7) Baso # (0.0-2.0) K/mm3 pO2 (30-55) mm/Hg VBG pH (7.32-7.43) VBG pCO2 (40-60) VBG HCO3 (21-28) mmol/l VBG Total CO2 (22-28) mmol.L VBG O2 Sat (Calc) (40-65) % VBG Base Excess (0.0-2.0) mmol/L VBG Potassium (3.6-5.2) mmol/L Sodium (132-148) mmol/L Chloride (98-107) mmol/L Glucose (65-105) mg/dl Lactate (0.7-2.1) mmol/L FiO2 % Potassium (3.6-5.0) mmol/L Carbon Dioxide (21-33) mmol/L Anion Gap (10-20) BUN (7-21) mg/dL Creatinine (0.5-1.4) mg/dL Est GFR ( Amer) Est GFR (Non-Af Amer) POC Glucose (mg/dL) (65-110) mg/dL Random Glucose (70-110) mg/dL Hemoglobin A1c (4.2-6.5) % Calcium (8.4-10.5) mg/dL Phosphorus (2.5-4.5) mg/dL Magnesium (1.7-2.2) mg/dL Total Bilirubin (0.2-1.3) mg/dL Direct Bilirubin 6.0 H (0.0-0.4) mg/dL AST (14-36) U/L ALT (7-56) U/L Alkaline Phosphatase (38-126) U/L Total Protein (5.8-8.3) g/dL Albumin (3.0-4.8) g/dL Globulin gm/dL Albumin/Globulin Ratio (1.1-1.8) Triglycerides (35-160) mg/dL Cholesterol (130-200) mg/dL LDL Cholesterol Direct (0-129) mg/dL HDL Cholesterol (29-60) mg/dL Amylase 61 (35-125) U/L Lipase 56 (23-300) U/L Venous Blood Potassium (3.6-5.2) mmol/L Acetaminophen (10.0-20.0) ug/ml Hepatitis A IgM Ab Negative (NEGATIVE) Hep Bs Antigen Negative (NEGATIVE) Hep B Core IgM Ab Negative (NEGATIVE) Hepatitis C Antibody Negative (NEGATIVE) Laboratory Results - last 24 hr 01/12/17 01/12/17 01/12/17 17:10 17:22 17:22 WBC RBC Hgb Hct MCV MCH MCHC RDW Plt Count MPV Gran % Lymph % (Auto) [place] % (Auto) Eos % (Auto) Baso % (Auto) Gran # Lymph # [place] # Eos # Baso # pO2 VBG pH VBG pCO2 VBG HCO3 VBG Total CO2 VBG O2 Sat (Calc) VBG Base Excess VBG Potassium Sodium Chloride Glucose Lactate FiO2 Potassium Carbon Dioxide Anion Gap BUN Creatinine Est GFR ( Amer) Est GFR (Non-Af Amer) POC Glucose (mg/dL) Random Glucose Hemoglobin A1c Calcium Phosphorus Magnesium Total Bilirubin Direct Bilirubin 6.0 H AST ALT Alkaline Phosphatase Total Protein Albumin Globulin Albumin/Globulin Ratio Triglycerides Cholesterol LDL Cholesterol Direct HDL Cholesterol Amylase 61 Lipase 56 Venous Blood Potassium Acetaminophen < 10.0 L Hepatitis A IgM Ab Negative Hep Bs Antigen Negative Hep B Core IgM Ab Negative Hepatitis C Antibody Negative 01/12/17 01/12/17 01/13/17 17:22 22:05 06:45 WBC 11.4 H RBC 4.05 Hgb 12.4 D Hct 37.7 MCV 93.1 MCH 30.6 MCHC 32.9 RDW 13.8 Plt Count 237 MPV 10.0 Gran % 72.7 H Lymph % (Auto) 13.8 L [place] % (Auto) 11.8 H Eos % (Auto) 1.5 Baso % (Auto) 0.2 Gran # 8.29 H Lymph # 1.6 [place] # 1.4 H Eos # 0.2 Baso # 0.02 pO2 110 H VBG pH 7.42 VBG pCO2 34.0 L VBG HCO3 22.1 VBG Total CO2 23.1 VBG O2 Sat (Calc) 99.2 H VBG Base Excess -1.7 L VBG Potassium 3.3 L Sodium 135.0 Chloride 103.0 Glucose 135 H Lactate 1.3 FiO2 21.0 Potassium Carbon Dioxide Anion Gap BUN Creatinine Est GFR ( Amer) Est GFR (Non-Af Amer) POC Glucose (mg/dL) 104 Random Glucose Hemoglobin A1c Calcium Phosphorus Magnesium Total Bilirubin Direct Bilirubin AST ALT Alkaline Phosphatase Total Protein Albumin Globulin Albumin/Globulin Ratio Triglycerides Cholesterol LDL Cholesterol Direct HDL Cholesterol Amylase Lipase Venous Blood Potassium 3.3 L Acetaminophen Hepatitis A IgM Ab Hep Bs Antigen Hep B Core IgM Ab Hepatitis C Antibody 01/13/17 01/13/17 06:45 06:45 WBC RBC Hgb Hct MCV MCH MCHC RDW Plt Count MPV Gran % Lymph % (Auto) [place] % (Auto) Eos % (Auto) Baso % (Auto) Gran # Lymph # [place] # Eos # Baso # pO2 VBG pH VBG pCO2 VBG HCO3 VBG Total CO2 VBG O2 Sat (Calc) VBG Base Excess VBG Potassium Sodium 144 Chloride 111 H Glucose Lactate FiO2 Potassium 3.2 L Carbon Dioxide 23 Anion Gap 13 BUN 11 Creatinine 0.5 Est GFR ( Amer) > 60 Est GFR (Non-Af Amer) > 60 POC Glucose (mg/dL) Random Glucose 68 L Hemoglobin A1c 5.9 Calcium 8.3 L Phosphorus 2.1 L Magnesium 2.1 Total Bilirubin 7.2 H Direct Bilirubin 5.8 H AST 133 H D ALT 196 H Alkaline Phosphatase 157 H D Total Protein 6.6 Albumin 3.2 Globulin 3.4 Albumin/Globulin Ratio 0.9 L Triglycerides 58 Cholesterol 123 L LDL Cholesterol Direct 45 HDL Cholesterol 42 Amylase Lipase Venous Blood Potassium Acetaminophen Hepatitis A IgM Ab Hep Bs Antigen Hep B Core IgM Ab Hepatitis C Antibody Critical Care Progress Note - Nutrition Nutrition: Nutrition Category Date Time Status NPO Diet [DIET] Diets 01/12/17 Dinner Ordered Attending/Attestation - Attestation I have personally seen and examined this patient.: Yes I have fully participated in the care of the patient.: Yes I have reviewed all pertinent clinical information: Yes Notes (Text): 01/13/17 15:20 81 yo female with ascending cholingitis, choledocholithiasis and cholecystitis, now s/p ERCP, partially successful with stent placement-->still CBD is partially impacted and may need second look. Currently asymptomatic, hemodyanmically and respiratory rivas stable. ok to downgrade to tele ccm time 40 min
[2017-01-13] MEDS: Potassium Phosphate 15 MMOLE in Sodium Chloride 0.9% 250 ML IVPB ONE ×2 (12:06→14:42)
[2017-01-13] MEDS ORDERED: Propofol 10 mg/ml Inj (20 ML) ONE ×2 (12:51→13:29)
[2017-01-13] MEDS ORDERED: Lidocaine 2% Inj (20ml) ONE (12:57)
[2017-01-13] MEDS ORDERED: Etomidate 20 mg/10ml Inj IV ONE (13:03)
--- NOTE | 2017-01-13 16:07 | CP.PCM.PN ---
Subjective - Date & Time of Evaluation Date of Evaluation: 01/13/17 Time of Evaluation: 08:40 - Subjective Subjective: Internal Medicine Progress Note Patient seen and assessed at bedside. No acute events overnight. Patient knows she will be getting an ERCP procedure done today. Patient denies any abdominal pain, fever, headache, chest pain, palpitations, cough, shortness of breath, N/V , diarrhea or constipation. Patient also had a bowel movement last night. Objective - Vital Signs/Intake and Output Vital Signs (last 24 hours): Temp Pulse Resp BP Pulse Ox 100.2 F H 74 23 147/54 L 100 01/13/17 08:00 01/13/17 10:50 01/13/17 10:50 01/13/17 10:00 01/13/17 12:40 Intake and Output: 01/13/17 01/13/17 06:59 18:59 Intake Total 2000 Output Total 1100 Balance 900 - Medications Medications: Current Medications Heparin Sodium (Porcine) (Heparin) 5,000 units SC Q12 [facility] PRN Reason: Protocol Last Admin: 01/12/17 22:30 Dose: 5,000 units Piperacillin Sod/Tazobactam Sod (Zosyn 4.5 Gm In Ns 100ml) 4.5 gm in 100 mls @ 200 mls/hr IVPB Q6 [facility] PRN Reason: Protocol Last Admin: 01/13/17 12:07 Dose: 200 mls/hr Acetaminophen (Ofirmev) 650 mg in 65 mls @ 400 mls/hr IVPB Q6H PRN PRN Reason: Temperature Stop: 01/14/17 19:13 Sodium Chloride (Sodium Chloride 0.9%) 1,000 mls @ 100 mls/hr IV .Q10H [facility] Morphine Sulfate (Morphine) 0.5 mg IVP Q4H PRN PRN Reason: Pain, moderate (4-7) Ondansetron HCl (Zofran Inj) 4 mg IVP Q6H PRN PRN Reason: Nausea/Vomiting Pantoprazole Sodium (Protonix Inj) 40 mg IVP DAILY [facility] Last Admin: 01/13/17 09:58 Dose: 40 mg - Labs Labs: 01/13/17 06:45 01/13/17 06:45 PT 12.3 Seconds (9.9-11.8) H 01/12/17 12:50 INR 1.14 (0.93-1.08) H 01/12/17 12:50 APTT 26.8 Seconds (23.7-30.8) 01/12/17 12:50 - Constitutional Appears: No Acute Distress - Head Exam Head Exam: ATRAUMATIC, NORMAL INSPECTION, NORMOCEPHALIC - Eye Exam Eye Exam: Normal appearance Pupil Exam: NORMAL ACCOMODATION - Neck Exam Neck Exam: Full ROM - Respiratory Exam Respiratory Exam: Clear to Ausculation Bilateral, NORMAL BREATHING PATTERN - Cardiovascular Exam Cardiovascular Exam: REGULAR RHYTHM, +S1, +S2 - Neurological Exam Neurological Exam: Alert, Awake, Oriented x3 Assessment and Plan - Assessment and Plan (Free Text) Assessment: 81 year old female with a past medical history of HTN, HLD, admitted to the ICU for sepsis and found to cholecystitis, cholelithiasis, and choledocholithiasis. She had an MRCP and plan to perform an ERCP today. Plan: Sepsis possibly from intraabdominal infection. Doubt UTI - Pyuria without symptoms - ID following - NS@150 - Zosyn (day 1) - Pending blood culture, urine culture - tylenol prn Cholecystitis Poss Choledocholithiasis Intractable abdominal pain R/O gallstone pancreatitis - pending amylase, lipase - NPO - zofran, protonix, morphine 0.5 IV q4 prn - MRCP stat - Surgery consulted recommending cholecystectomy after ercp, possibly as outpatient Hyperbilirubinemia - Pending direct bilirubin, doubt hemolysis Transaminitis - pending acetaminophen level, hepatitis panel Constipation Has r/o bowel obstruction - Senna + miralax prn - pending GI rec Hx HTN - hold PO HTN med for decreased BP Hx HLD - pending lipid panel, a1c Prophylaxis = heparin SC + protonix
--- NOTE | 2017-01-13 17:18 | CP.PCM.PN ---
Subjective - Date & Time of Evaluation Date of Evaluation: 01/13/17 Time of Evaluation: 16:45 - Subjective Subjective: Infectious Disease Follow Up: January 13, 2017 81 yo AA female with with 2 week history of abdominal pain and 2 day history of poor oral intake and chills. The patient was found to have fevers up to 103.1 F on admission to the ER. The patient with potential cholecystitis and dehydration. The patient is not showing peritoneal signs. No other complaints. MRCP shows intra and extra hepatic biliary dilatation. There is a 1.8 x 1.7 cm gallstone. There is distention, lobulation, and internal septation of the gallbladder. Multiple hypointense gallstones were visualized with in the gallbladder. Mild cholecystitis. Patient taken for ERCP for sphincterotomy, extraction of sludge and small stone fragments, spyglass with EHL, and placement of a stent. Patient with choledocholithiasis, biliary obstruction, and cholangitis. Objective - Vital Signs/Intake and Output Vital Signs (last 24 hours): Temp Pulse Resp BP Pulse Ox 100.2 F H 74 23 147/54 L 100 01/13/17 08:00 01/13/17 10:50 01/13/17 10:50 01/13/17 10:00 01/13/17 12:40 Intake and Output: 01/13/17 01/13/17 06:59 18:59 Intake Total 2000 Output Total 1100 Balance 900 - Medications Medications: Current Medications Heparin Sodium (Porcine) (Heparin) 5,000 units SC Q12 [facility] PRN Reason: Protocol Last Admin: 01/12/17 22:30 Dose: 5,000 units Piperacillin Sod/Tazobactam Sod (Zosyn 4.5 Gm In Ns 100ml) 4.5 gm in 100 mls @ 200 mls/hr IVPB Q6 [facility] PRN Reason: Protocol Last Admin: 01/13/17 12:07 Dose: 200 mls/hr Acetaminophen (Ofirmev) 650 mg in 65 mls @ 400 mls/hr IVPB Q6H PRN PRN Reason: Temperature Stop: 01/14/17 19:13 Sodium Chloride (Sodium Chloride 0.9%) 1,000 mls @ 100 mls/hr IV .Q10H [facility] Morphine Sulfate (Morphine) 0.5 mg IVP Q4H PRN PRN Reason: Pain, moderate (4-7) Ondansetron HCl (Zofran Inj) 4 mg IVP Q6H PRN PRN Reason: Nausea/Vomiting Pantoprazole Sodium (Protonix Inj) 40 mg IVP DAILY [facility] Last Admin: 01/13/17 09:58 Dose: 40 mg - Labs Labs: 01/13/17 06:45 01/13/17 06:45 PT 12.3 Seconds (9.9-11.8) H 01/12/17 12:50 INR 1.14 (0.93-1.08) H 01/12/17 12:50 APTT 26.8 Seconds (23.7-30.8) 01/12/17 12:50 - Constitutional Appears: Non-toxic, No Acute Distress - Head Exam Head Exam: ATRAUMATIC, NORMOCEPHALIC - Eye Exam Eye Exam: EOMI, PERRL Pupil Exam: NORMAL ACCOMODATION, PERRL - ENT Exam ENT Exam: Mucous Membranes Moist, Normal External Ear Exam, TM's Normal Bilaterally - Neck Exam Neck Exam: Full ROM, Normal Inspection - Respiratory Exam Respiratory Exam: Clear to Ausculation Bilateral, NORMAL BREATHING PATTERN. absent: Rales, Rhonchi, Wheezes - Cardiovascular Exam Cardiovascular Exam: REGULAR RHYTHM, RRR, +S1, +S2 - GI/Abdominal Exam GI & Abdominal Exam: Soft, Normal Bowel Sounds. absent: Distended, Tenderness - Extremities Exam Extremities Exam: Full ROM, Normal Inspection - Neurological Exam Neurological Exam: Alert, Awake, CN II-XII Intact, Oriented x3 - Psychiatric Exam Psychiatric exam: Normal Affect, Normal Mood - Skin Skin Exam: Intact, Normal Color Assessment and Plan - Assessment and Plan (Free Text) Assessment: 81 yo female with abdominal pain for two weeks. The patient had 2 days of chills and poor appetite. Found to have a fever of 103.1 F in ER. The patient was taken to Ultrasound and found to have dialated CBD and 1.3 cm stone blocking the CBD. The patient was started on Zosyn and Vancomycin. Zosyn alone will be adequate coverage. Patient is being admitted to the MICU for further monitoring. May need surgery versus ERCP. Would continue hydration of the patient with IV fluids. Supportive care. Patient with choledocholithiasis, cholecystitis, and biliary obstruction. MCRP done. ERCP performed after results verified from MCRP. ERCP done for sphincterotomy, stent placement, stone removal. No further fevers but the values have been borderline. Continue on Zosyn. Thank you for allowing me to participate in the care of the patient, we will follow with you.
[2017-01-14] MEDS: Sodium Chloride 0.9% 1,000 ML IV SCH (02:42)
[2017-01-14] MEDS: Piperacill/Tazo 4.5gm in NS 4.5 GM/100 ML BAG IVPB SCH ×4 (06:01→18:00)
[2017-01-14 06:35] LABS: BASO # 0.01 K/mm3 (0.0-2.0); BASO % 0.1 % (0.0-3.0); EOS # 0.3 (0.0-0.7); EOS % 3.4 % (1.5-5.0); GRAN # 5.84 (1.4-6.5); GRAN % 68.8 % (50.0-68.0); HEMATOCRIT 33.8 % (36.0-48.0); LYMPH # 1.5 (1.2-3.4); LYMPH % 17.3 % (22.0-35.0); MEAN CELL VOLUME 92.9 fl (80.0-105.0); MEAN CORPUSCULAR HEMOGLOBIN 30.8 pg (25.0-35.0); MEAN CORPUSCULAR HGB CONC 33.1 g/dl (31.0-37.0); MEAN PLATELET VOLUME 9.7 fl (7.0-11.0); MONO # 0.9 (0.1-0.6); MONO % 10.4 % (1.0-6.0); RED CELL DISTRIBUTION WIDTH 13.9 % (11.5-14.5); WHITE BLOOD COUNT 8.5 10^3/ul (4.5-11.0)
--- NOTE | 2017-01-14 06:47 | CP.PCM.PN ---
Subjective - Date & Time of Evaluation Date of Evaluation: 01/14/17 Time of Evaluation: 06:38 - Subjective Subjective: General Surgery Progress note for Dr. Meier PT S&E at bedside. JOSEPHINE. Patient tolerated her ERCP well. Stent was placed, lithotripsy. Patient denies F/C/N/V. Objective - Vital Signs/Intake and Output Vital Signs (last 24 hours): Temp Pulse Resp BP Pulse Ox 98.1 F 59 L 13 130/60 97 01/14/17 04:00 01/14/17 06:00 01/14/17 06:00 01/14/17 06:00 01/14/17 06:00 Intake and Output: 01/13/17 01/14/17 18:59 06:59 Intake Total 3390 Output Total 500 Balance 2890 - Medications Medications: Current Medications Heparin Sodium (Porcine) (Heparin) 5,000 units SC Q12 [facility] PRN Reason: Protocol Last Admin: 01/12/17 22:30 Dose: 5,000 units Piperacillin Sod/Tazobactam Sod (Zosyn 4.5 Gm In Ns 100ml) 4.5 gm in 100 mls @ 200 mls/hr IVPB Q6 [facility] PRN Reason: Protocol Last Admin: 01/14/17 06:01 Dose: 200 mls/hr Acetaminophen (Ofirmev) 650 mg in 65 mls @ 400 mls/hr IVPB Q6H PRN PRN Reason: Temperature Stop: 01/14/17 19:13 Sodium Chloride (Sodium Chloride 0.9%) 1,000 mls @ 100 mls/hr IV .Q10H [facility] Last Admin: 01/14/17 02:42 Dose: 100 mls/hr Morphine Sulfate (Morphine) 0.5 mg IVP Q4H PRN PRN Reason: Pain, moderate (4-7) Ondansetron HCl (Zofran Inj) 4 mg IVP Q6H PRN PRN Reason: Nausea/Vomiting Pantoprazole Sodium (Protonix Inj) 40 mg IVP DAILY [facility] Last Admin: 01/13/17 09:58 Dose: 40 mg - Labs Labs: 01/13/17 06:45 01/13/17 06:45 PT 12.3 Seconds (9.9-11.8) H 01/12/17 12:50 INR 1.14 (0.93-1.08) H 01/12/17 12:50 APTT 26.8 Seconds (23.7-30.8) 01/12/17 12:50 - Constitutional Appears: No Acute Distress - Head Exam Head Exam: NORMAL INSPECTION - Eye Exam Eye Exam: EOMI, Normal appearance - ENT Exam ENT Exam: Mucous Membranes Moist - Neck Exam Neck Exam: Full ROM, Normal Inspection - Respiratory Exam Respiratory Exam: Clear to Ausculation Bilateral, NORMAL BREATHING PATTERN. absent: Accessory Muscle Use, Respiratory Distress - Cardiovascular Exam Cardiovascular Exam: REGULAR RHYTHM. absent: Bradycardia, Tachycardia - GI/Abdominal Exam GI & Abdominal Exam: Soft. absent: Tenderness, Hypoactive Bowel Sounds, Rebound - Back Exam Back Exam: Full ROM, NORMAL INSPECTION. absent: paraspinal tenderness - Neurological Exam Neurological Exam: Alert, Awake - Psychiatric Exam Psychiatric exam: Normal Affect, Normal Mood - Skin Skin Exam: Dry, Intact, Normal Color, Warm Assessment and Plan - Assessment and Plan (Free Text) Assessment: 81F presents with abdominal pain, choledocholithiasis and cholecystitis. Plan: c/w IVF (NS @ 150) monitor vitals c/w antibiotics per primary f/u lipase, amylase f/u GI recommendations Cholecystectomy to be scheduled for outpatient monitor for mental status changes Sharla Blandon DO PGY1
[2017-01-14 06:50] LABS: ALB/GLOB RATIO 0.9 (1.1-1.8); ALKALINE PHOSPHATASE 144 U/L (38-126); ALT/SGPT 149 U/L (7-56); AST/SGOT 131 U/L (14-36); BILIRUBIN,TOTAL 6.4 mg/dL (0.2-1.3); BLOOD UREA NITROGEN 9 mg/dL (7-21); CALCIUM 7.6 mg/dL (8.4-10.5); CARBON DIOXIDE 22 mmol/L (21-33); CHLORIDE 112 mmol/L (98-107); GFR AFRICAN-AMERICAN > 60; GLUCOSE,RANDOM 88 mg/dL (70-110); SODIUM 142 mmol/L (132-148); TOTAL PROTEIN 6.2 g/dL (5.8-8.3)
[2017-01-14 06:59] LABS: POTASSIUM 2.9 mmol/L (3.6-5.0)
[2017-01-14] MEDS ORDERED: Potassium Chloride 20 mEq ER Tab PO STA (07:15)
--- NOTE | 2017-01-14 11:42 | CP.PCM.PN ---
Subjective - Date & Time of Evaluation Date of Evaluation: 01/14/17 Time of Evaluation: 09:00 - Subjective Subjective: Patient is feeling better.She is SP ERCP yesterday, Abdominal pain is better.She is afebrile, tolerating clear liquid diet. Objective - Vital Signs/Intake and Output Vital Signs (last 24 hours): Temp Pulse Resp BP Pulse Ox 98.1 F 59 L 13 130/60 97 01/14/17 04:00 01/14/17 06:00 01/14/17 06:00 01/14/17 06:00 01/14/17 06:00 Intake and Output: 01/14/17 01/14/17 06:59 18:59 Intake Total 3390 Output Total 500 Balance 2890 - Medications Medications: Current Medications Enoxaparin Sodium (Lovenox) 40 mg SC DAILY [facility] PRN Reason: Protocol Piperacillin Sod/Tazobactam Sod (Zosyn 4.5 Gm In Ns 100ml) 4.5 gm in 100 mls @ 200 mls/hr IVPB Q6 [facility] PRN Reason: Protocol Last Admin: 01/14/17 06:01 Dose: 200 mls/hr Acetaminophen (Ofirmev) 650 mg in 65 mls @ 400 mls/hr IVPB Q6H PRN PRN Reason: Temperature Stop: 01/14/17 19:13 Morphine Sulfate (Morphine) 0.5 mg IVP Q4H PRN PRN Reason: Pain, moderate (4-7) Ondansetron HCl (Zofran Inj) 4 mg IVP Q6H PRN PRN Reason: Nausea/Vomiting Pantoprazole Sodium (Protonix Inj) 40 mg IVP DAILY [facility] Last Admin: 01/14/17 09:08 Dose: 40 mg - Labs Labs: 01/14/17 06:10 01/14/17 06:10 PT 12.3 Seconds (9.9-11.8) H 01/12/17 12:50 INR 1.14 (0.93-1.08) H 01/12/17 12:50 APTT 26.8 Seconds (23.7-30.8) 01/12/17 12:50 - Constitutional Appears: Non-toxic, No Acute Distress - Head Exam Head Exam: ATRAUMATIC, NORMAL INSPECTION - Eye Exam Eye Exam: Normal appearance, Scleral icterus - ENT Exam ENT Exam: Mucous Membranes Moist - Respiratory Exam Respiratory Exam: Clear to Ausculation Bilateral, NORMAL BREATHING PATTERN Additional comments: few fine basal crackle. - Cardiovascular Exam Cardiovascular Exam: REGULAR RHYTHM Additional comments: no rub or gallolp - Extremities Exam Extremities Exam: Full ROM, Normal Inspection - Neurological Exam Neurological Exam: Alert, Awake, CN II-XII Intact, Oriented x3 (non focal) Assessment and Plan - Assessment and Plan (Free Text) Plan: 81 year old female with h/o HTN, HLD was admitted with acute cholangitis, biliary obstruction 2/2 choledocholithiasis.She is SP ERCP yesterday, billiary stone was removed.Patient LFT are coming down.She is tolerating clear liquid diet. 1. Acute cholangitis due to Choledocholithiasis SP ERCP yesterday, tolerating clear liquid. Blood cultures are negative. LFT are coming down We will advance diet. Continue IV zosyn. We will monitor LFT. Will eventually need cholycystectomy 2.HTN Blood pressure is stable with out any medications. We will monitor and adjust medications 4.Hypokalemia Replacement has been given, will follow up electrolyte. 4.DVT Prophylaxis with lovenox Management plan was discussed in detail with patient Education was provided.
[2017-01-14 11:55] LABS: ALB/GLOB RATIO 0.9 (1.1-1.8); ALKALINE PHOSPHATASE 161 U/L (38-126); ALT/SGPT 170 U/L (7-56); AST/SGOT 145 U/L (14-36); BILIRUBIN,TOTAL 7.3 mg/dL (0.2-1.3); BLOOD UREA NITROGEN 9 mg/dL (7-21); CALCIUM 8.3 mg/dL (8.4-10.5); CARBON DIOXIDE 22 mmol/L (21-33); CHLORIDE 111 mmol/L (98-107); GFR AFRICAN-AMERICAN > 60; GLUCOSE,RANDOM 102 mg/dL (70-110); POTASSIUM 3.9 mmol/L (3.6-5.0); SODIUM 140 mmol/L (132-148); TOTAL PROTEIN 7.1 g/dL (5.8-8.3)
--- NOTE | 2017-01-14 12:02 | RAD ---
PROCEDURE: ERCP HISTORY: ? CBD OBST COMPARISON: None TECHNIQUE: Standard protocol for this study/examination. FINDINGS: Submitted images from the current procedure: 1.0 identifying a stent in the common bile duct. IMPRESSION: Total fluoroscopic time (continuous mode) utilized during the procedure: 190.2 seconds.
--- NOTE | 2017-01-14 12:08 | RAD ---
HISTORY: crackles at the bases COMPARISON: 01/12/2017. FINDINGS: LUNGS: Limited atelectasis right upper lobe. PLEURA: No significant pleural effusion identified, no pneumothorax apparent. CARDIOVASCULAR: No radiographic findings to suggest acute or significant cardiovascular disease. OSSEOUS STRUCTURES: No significant abnormalities. VISUALIZED UPPER ABDOMEN: Normal. OTHER FINDINGS: None. IMPRESSION: No active disease. No significant interval change compared to the prior examination(s).
--- NOTE | 2017-01-14 12:49 | CP.PCM.PN ---
<Yvonne Jackson - Last Filed: 01/14/17 13:51> Subjective - Date & Time of Evaluation Date of Evaluation: 01/14/17 Time of Evaluation: 12:51 - Subjective Subjective: Gastroenterology Fellow/PGY5 Progress Note Patient notes resolved abdominal pain. Tolerated full liquid diet. States she is hungry. No bowel movement overnight. A 12-point review of systems negative except for as above. Objective - Vital Signs/Intake and Output Vital Signs (last 24 hours): Temp Pulse Resp BP Pulse Ox 98.1 F 59 L 13 130/60 97 01/14/17 04:00 01/14/17 06:00 01/14/17 06:00 01/14/17 06:00 01/14/17 06:00 Intake and Output: 01/14/17 01/14/17 06:59 18:59 Intake Total 3390 Output Total 500 Balance 2890 - Medications Medications: Current Medications Enoxaparin Sodium (Lovenox) 40 mg SC DAILY [facility] PRN Reason: Protocol Piperacillin Sod/Tazobactam Sod (Zosyn 4.5 Gm In Ns 100ml) 4.5 gm in 100 mls @ 200 mls/hr IVPB Q6 [facility] PRN Reason: Protocol Last Admin: 01/14/17 06:01 Dose: 200 mls/hr Acetaminophen (Ofirmev) 650 mg in 65 mls @ 400 mls/hr IVPB Q6H PRN PRN Reason: Temperature Stop: 01/14/17 19:13 Morphine Sulfate (Morphine) 0.5 mg IVP Q4H PRN PRN Reason: Pain, moderate (4-7) Ondansetron HCl (Zofran Inj) 4 mg IVP Q6H PRN PRN Reason: Nausea/Vomiting Pantoprazole Sodium (Protonix Inj) 40 mg IVP DAILY [facility] Last Admin: 01/14/17 09:08 Dose: 40 mg - Labs Labs: 01/14/17 06:10 01/14/17 11:30 PT 12.3 Seconds (9.9-11.8) H 01/12/17 12:50 INR 1.14 (0.93-1.08) H 01/12/17 12:50 APTT 26.8 Seconds (23.7-30.8) 01/12/17 12:50 - Constitutional Appears: Non-toxic, No Acute Distress - Head Exam Head Exam: ATRAUMATIC, NORMOCEPHALIC - Eye Exam Eye Exam: EOMI, PERRL Pupil Exam: PERRL. absent: Miosis, Mydriatic - ENT Exam ENT Exam: Mucous Membranes Moist, Normal Oropharynx - Neck Exam Neck Exam: Full ROM, Normal Inspection - Respiratory Exam Respiratory Exam: Clear to Ausculation Bilateral. absent: Rales, Rhonchi, Wheezes - Cardiovascular Exam Cardiovascular Exam: RRR, +S1, +S2. absent: Gallop, Rubs - GI/Abdominal Exam GI & Abdominal Exam: Soft, Normal Bowel Sounds. absent: Distended, Firm, Guarding, Rigid, Tenderness, Organomegaly, Rebound - Extremities Exam Extremities Exam: Normal Inspection. absent: Pedal Edema - Neurological Exam Neurological Exam: Alert, Awake - Psychiatric Exam Psychiatric exam: Normal Affect, Normal Mood - Skin Skin Exam: Dry, Intact, Normal Color, Warm Assessment and Plan - Assessment and Plan (Free Text) Assessment: 81 year old male with history of Hypertension and Hyperlipidemia presenting with abdominal pain. Active treatment of sepsis 2/2 ascending cholangitis, cholecystitis/cholelithiasis complicated by choledocholithiasis POD 1 (01/13/17) ERCP with sphincterotomy, spyglass with EHL, balloon sweep, partial sludge and stone fragments extraction, and placement of a 7Fr x 7cm plastic biliary stent. No prior EGD or colonoscopy. Plan: >no signs of post-ERCP pancreatitis >continue zosyn >LFTs slowly improving >continue to trend >advance to low fat diet as tolerated >supportive care: pain control, anti-emetics >will require repeat ERCP in 4 weeks for complete stone extraction >will follow up with Dr. Ness outpatient in 2 weeks >will follow clinical course <Micheal Davis - Last Filed: 01/14/17 15:36> Objective - Vital Signs/Intake and Output Vital Signs (last 24 hours): Temp Pulse Resp BP Pulse Ox 98.1 F 67 19 146/56 L 99 01/14/17 04:00 01/14/17 14:20 01/14/17 14:20 01/14/17 08:00 01/14/17 14:20 Intake and Output: 01/14/17 01/14/17 06:59 18:59 Intake Total 3390 Output Total 500 Balance 2890 - Medications Medications: Current Medications Enoxaparin Sodium (Lovenox) 40 mg SC DAILY [facility] PRN Reason: Protocol Last Admin: 01/14/17 13:48 Dose: 40 mg Piperacillin Sod/Tazobactam Sod (Zosyn 4.5 Gm In Ns 100ml) 4.5 gm in 100 mls @ 200 mls/hr IVPB Q6 [facility] PRN Reason: Protocol Last Admin: 01/14/17 12:30 Dose: 200 mls/hr Acetaminophen (Ofirmev) 650 mg in 65 mls @ 400 mls/hr IVPB Q6H PRN PRN Reason: Temperature Stop: 01/14/17 19:13 Morphine Sulfate (Morphine) 0.5 mg IVP Q4H PRN PRN Reason: Pain, moderate (4-7) Ondansetron HCl (Zofran Inj) 4 mg IVP Q6H PRN PRN Reason: Nausea/Vomiting Pantoprazole Sodium (Protonix Inj) 40 mg IVP DAILY [facility] Last Admin: 01/14/17 09:08 Dose: 40 mg - Labs Labs: 01/14/17 06:10 01/14/17 11:30 PT 12.3 Seconds (9.9-11.8) H 01/12/17 12:50 INR 1.14 (0.93-1.08) H 01/12/17 12:50 APTT 26.8 Seconds (23.7-30.8) 01/12/17 12:50 Attending/Attestation - Attestation I have personally seen and examined this patient.: Yes I have fully participated in the care of the patient.: Yes I have reviewed all pertinent clinical information, including history, physical exam and plan: Yes Notes (Text): 01/14/17 15:29 I have seen and examined patient with GI fellow. No acute events overnight, she is seen sitting in chair next to bed, appears quite comfortable. She denies abdominal pain, nausea, vomiting, fever/chills. Tolerating PO diet without difficulty. Review of vitals from today are normal. HTN Hyperlipidemia Abdominal pain, ascending cholangitis s/p ERCP with sphincterotomy, EHL and partial stone removal, biliary stent placement - Low fat diet as tolerated - LFTs stable, continue to monitor - Continue with antibiotic therapy as per ID - Patient will require repeat ERCP with residual stone extraction within 4 weeks time, to be arranged as outpatient with Dr. Ness. Office contact information provided to patient and family members at bedside. - Will sign off case, please reconsult as necessary, thank you.
[2017-01-14] MEDS: Enoxaparin 40 mg Syringe SC SCH (13:48)
--- NOTE | 2017-01-14 15:44 | CP.PCM.PN ---
Subjective - Date & Time of Evaluation Date of Evaluation: 01/14/17 Time of Evaluation: 15:00 - Subjective Subjective: Infectious Disease Follow Up: January 14, 2017 81 yo AA female with with 2 week history of abdominal pain and 2 day history of poor oral intake and chills. The patient was found to have fevers up to 103.1 F on admission to the ER. The patient with potential cholecystitis and dehydration. The patient is not showing peritoneal signs. No other complaints. MRCP shows intra and extra hepatic biliary dilatation. There is a 1.8 x 1.7 cm gallstone. There is distention, lobulation, and internal septation of the gallbladder. Multiple hypointense gallstones were visualized with in the gallbladder. Mild cholecystitis. Patient taken for ERCP for sphincterotomy, extraction of sludge and small stone fragments, spyglass with EHL, and placement of a stent. Patient with choledocholithiasis, biliary obstruction, and cholangitis. Transferred from the MICU to the medical floor. The patient is tolerating liquids. She states no complaints and that the abdominal pain has resolved since the ERCP. Objective - Vital Signs/Intake and Output Vital Signs (last 24 hours): Temp Pulse Resp BP Pulse Ox 98.1 F 67 19 146/56 L 99 01/14/17 04:00 01/14/17 14:20 01/14/17 14:20 01/14/17 08:00 01/14/17 14:20 Intake and Output: 01/14/17 01/14/17 06:59 18:59 Intake Total 3390 Output Total 500 Balance 2890 - Medications Medications: Current Medications Enoxaparin Sodium (Lovenox) 40 mg SC DAILY [facility] PRN Reason: Protocol Last Admin: 01/14/17 13:48 Dose: 40 mg Piperacillin Sod/Tazobactam Sod (Zosyn 4.5 Gm In Ns 100ml) 4.5 gm in 100 mls @ 200 mls/hr IVPB Q6 [facility] PRN Reason: Protocol Last Admin: 01/14/17 12:30 Dose: 200 mls/hr Acetaminophen (Ofirmev) 650 mg in 65 mls @ 400 mls/hr IVPB Q6H PRN PRN Reason: Temperature Stop: 01/14/17 19:13 Morphine Sulfate (Morphine) 0.5 mg IVP Q4H PRN PRN Reason: Pain, moderate (4-7) Ondansetron HCl (Zofran Inj) 4 mg IVP Q6H PRN PRN Reason: Nausea/Vomiting Pantoprazole Sodium (Protonix Inj) 40 mg IVP DAILY [facility] Last Admin: 01/14/17 09:08 Dose: 40 mg - Labs Labs: 01/14/17 06:10 01/14/17 11:30 PT 12.3 Seconds (9.9-11.8) H 01/12/17 12:50 INR 1.14 (0.93-1.08) H 01/12/17 12:50 APTT 26.8 Seconds (23.7-30.8) 01/12/17 12:50 - Constitutional Appears: Non-toxic, No Acute Distress, Chronically Ill - Head Exam Head Exam: ATRAUMATIC, NORMOCEPHALIC - Eye Exam Eye Exam: EOMI, PERRL Pupil Exam: NORMAL ACCOMODATION, PERRL - ENT Exam ENT Exam: Mucous Membranes Moist, Normal External Ear Exam, TM's Normal Bilaterally - Neck Exam Neck Exam: Full ROM, Normal Inspection - Respiratory Exam Respiratory Exam: Clear to Ausculation Bilateral, NORMAL BREATHING PATTERN. absent: Rales, Rhonchi, Wheezes - Cardiovascular Exam Cardiovascular Exam: REGULAR RHYTHM, RRR, +S1, +S2 - GI/Abdominal Exam GI & Abdominal Exam: Soft, Normal Bowel Sounds. absent: Distended, Tenderness - Extremities Exam Extremities Exam: Full ROM, Normal Inspection - Neurological Exam Neurological Exam: Alert, Awake, CN II-XII Intact, Oriented x3 - Psychiatric Exam Psychiatric exam: Normal Affect, Normal Mood - Skin Skin Exam: Intact, Normal Color Assessment and Plan - Assessment and Plan (Free Text) Assessment: 81 yo female with abdominal pain for two weeks. The patient had 2 days of chills and poor appetite. Found to have a fever of 103.1 F in ER. The patient was taken to Ultrasound and found to have dialated CBD and 1.3 cm stone blocking the CBD. The patient was started on Zosyn and Vancomycin. Zosyn alone will be adequate coverage. Patient is being admitted to the MICU for further monitoring. May need surgery versus ERCP. Would continue hydration of the patient with IV fluids. Supportive care. Patient with choledocholithiasis, cholecystitis, and biliary obstruction. MCRP done. ERCP performed after results verified from MCRP. ERCP done for sphincterotomy, stent placement, stone removal. No further fevers but the values have been borderline. Clinically, the patient's abdominal pain has resolved. Continue on Zosyn. May consider use of Keflex 500mg PO TID for antibiotic treatment when ready for discharge for 7 days after discharge. Thank you for allowing me to participate in the care of the patient, we will follow with you.
[2017-01-15] MEDS: Piperacill/Tazo 4.5gm in NS 4.5 GM/100 ML BAG IVPB SCH ×3 (00:21→11:37)
[2017-01-15 03:14] VITALS: RESP 20
--- NOTE | 2017-01-15 06:29 | CP.PCM.PN ---
Subjective - Date & Time of Evaluation Date of Evaluation: 01/15/17 Time of Evaluation: 06:27 - Subjective Subjective: SURGERY NOTE FOR DR. LOPEZ 81F seen and examined at bedside. JOSEPHINE. Patient denies pain, nausea, vomiting, and is tolerating liquid diet. denies fevers. Objective - Vital Signs/Intake and Output Vital Signs (last 24 hours): Temp Pulse Resp BP Pulse Ox 97.8 F 73 20 153/79 H 96 01/15/17 00:00 01/15/17 00:00 01/15/17 00:00 01/15/17 00:00 01/15/17 00:00 Intake and Output: 01/14/17 01/15/17 18:59 06:59 Intake Total 240 Balance 240 - Medications Medications: Current Medications Enoxaparin Sodium (Lovenox) 40 mg SC DAILY [facility] PRN Reason: Protocol Last Admin: 01/14/17 13:48 Dose: 40 mg Piperacillin Sod/Tazobactam Sod (Zosyn 4.5 Gm In Ns 100ml) 4.5 gm in 100 mls @ 200 mls/hr IVPB Q6 [facility] PRN Reason: Protocol Last Admin: 01/15/17 05:22 Dose: 200 mls/hr Morphine Sulfate (Morphine) 0.5 mg IVP Q4H PRN PRN Reason: Pain, moderate (4-7) Ondansetron HCl (Zofran Inj) 4 mg IVP Q6H PRN PRN Reason: Nausea/Vomiting Pantoprazole Sodium (Protonix Inj) 40 mg IVP DAILY [facility] Last Admin: 01/14/17 09:08 Dose: 40 mg - Labs Labs: 01/14/17 06:10 01/14/17 11:30 PT 12.3 Seconds (9.9-11.8) H 01/12/17 12:50 INR 1.14 (0.93-1.08) H 01/12/17 12:50 APTT 26.8 Seconds (23.7-30.8) 01/12/17 12:50 - Constitutional Appears: Non-toxic, No Acute Distress - Respiratory Exam Respiratory Exam: Clear to Ausculation Bilateral, NORMAL BREATHING PATTERN - Cardiovascular Exam Cardiovascular Exam: REGULAR RHYTHM, +S1, +S2 - GI/Abdominal Exam GI & Abdominal Exam: Soft. absent: Distended, Firm, Guarding, Rigid, Tenderness , Rebound - Neurological Exam Neurological Exam: Alert, Awake Assessment and Plan - Assessment and Plan (Free Text) Assessment: 81F presents with abdominal pain, choledocholithiasis and cholecystitis. s/p ERCP POD2 Plan: monitor vitals c/w antibiotics per primary f/u GI recommendations Cholecystectomy to be scheduled for outpatient Further recs discuss with Dr. Hardeep Thacker, PGY2
[2017-01-15 06:58] LABS: BASO # 0.02 K/mm3 (0.0-2.0); BASO % 0.3 % (0.0-3.0); EOS # 0.3 (0.0-0.7); GRAN # 4.58 (1.4-6.5); GRAN % 60.7 % (50.0-68.0); HEMATOCRIT 35.1 % (36.0-48.0); LYMPH # 1.8 (1.2-3.4); LYMPH % 23.4 % (22.0-35.0); MEAN CELL VOLUME 91.6 fl (80.0-105.0); MEAN CORPUSCULAR HEMOGLOBIN 31.1 pg (25.0-35.0); MEAN CORPUSCULAR HGB CONC 33.9 g/dl (31.0-37.0); MEAN PLATELET VOLUME 9.9 fl (7.0-11.0); MONO # 0.9 (0.1-0.6); MONO % 11.6 % (1.0-6.0); WHITE BLOOD COUNT 7.5 10^3/ul (4.5-11.0)
[2017-01-15 07:14] LABS: ALB/GLOB RATIO 0.9 (1.1-1.8); ALKALINE PHOSPHATASE 160 U/L (38-126); ALT/SGPT 177 U/L (7-56); AST/SGOT 185 U/L (14-36); BILIRUBIN,TOTAL 6.7 mg/dL (0.2-1.3); BLOOD UREA NITROGEN 7 mg/dL (7-21); CALCIUM 8.2 mg/dL (8.4-10.5); CARBON DIOXIDE 23 mmol/L (21-33); CHLORIDE 110 mmol/L (98-107); GFR AFRICAN-AMERICAN > 60; GLUCOSE,RANDOM 83 mg/dL (70-110); POTASSIUM 3.3 mmol/L (3.6-5.0); SODIUM 141 mmol/L (132-148); TOTAL PROTEIN 6.7 g/dL (5.8-8.3)
[2017-01-15 07:51] VITALS: BP 150/76; PULSE 79; TEMP 97.5; O2SAT 98
[2017-01-15] MEDS: Enoxaparin 40 mg Syringe SC SCH (09:47)
--- NOTE | 2017-01-15 14:06 | CP.PCM.DIS ---
<Julia Luz - Last Filed: 01/15/17 14:15> Provider - Provider Date of Admission: 01/12/17 16:15 Attending physician: Reymundo Lorenzo MD Primary care physician: Cindi Quintanilla MD Consults: GI = Dr. Ness Surg = Dr. Meier ICU = Dr. Garcia ID = Dr. Dawson Time Spent in preparation of Discharge (in minutes): 33 Hospital Course - Lab Results Lab Results: Micro Results 01/12/17 19:53 Naris MRSA Culture (Admit) - Final MRSA NOT DETECTED Most Recent Lab Values WBC 7.5 10^3/ul (4.5-11.0) 01/15/17 06:30 RBC 3.83 10^6/uL (3.5-6.1) 01/15/17 06:30 Hgb 11.9 g/dL (12.0-16.0) L 01/15/17 06:30 Hct 35.1 % (36.0-48.0) L 01/15/17 06:30 MCV 91.6 fl (80.0-105.0) 01/15/17 06:30 MCH 31.1 pg (25.0-35.0) 01/15/17 06:30 MCHC 33.9 g/dl (31.0-37.0) 01/15/17 06:30 RDW 14.0 % (11.5-14.5) 01/15/17 06:30 Plt Count 245 10^3/uL (120.0-450.0) 01/15/17 06:30 MPV 9.9 fl (7.0-11.0) 01/15/17 06:30 Gran % 60.7 % (50.0-68.0) 01/15/17 06:30 Lymph % (Auto) 23.4 % (22.0-35.0) 01/15/17 06:30 [place] % (Auto) 11.6 % (1.0-6.0) H 01/15/17 06:30 Eos % (Auto) 4.0 % (1.5-5.0) 01/15/17 06:30 Baso % (Auto) 0.3 % (0.0-3.0) 01/15/17 06:30 Gran # 4.58 (1.4-6.5) 01/15/17 06:30 Lymph # 1.8 (1.2-3.4) 01/15/17 06:30 [place] # 0.9 (0.1-0.6) H 01/15/17 06:30 Eos # 0.3 (0.0-0.7) 01/15/17 06:30 Baso # 0.02 K/mm3 (0.0-2.0) 01/15/17 06:30 PT 12.3 Seconds (9.9-11.8) H 01/12/17 12:50 INR 1.14 (0.93-1.08) H 01/12/17 12:50 APTT 26.8 Seconds (23.7-30.8) 01/12/17 12:50 pO2 110 mm/Hg (30-55) H 01/12/17 17:22 VBG pH 7.42 (7.32-7.43) 01/12/17 17:22 VBG pCO2 34.0 (40-60) L 01/12/17 17:22 VBG HCO3 22.1 mmol/l (21-28) 01/12/17 17:22 VBG Total CO2 23.1 mmol.L (22-28) 01/12/17 17:22 VBG O2 Sat (Calc) 99.2 % (40-65) H 01/12/17 17:22 VBG Base Excess -1.7 mmol/L (0.0-2.0) L 01/12/17 17:22 VBG Potassium 3.3 mmol/L (3.6-5.2) L 01/12/17 17:22 Sodium 135.0 mmol/L (132-148) 01/12/17 17:22 Chloride 103.0 mmol/L (98-107) 01/12/17 17:22 Glucose 135 mg/dl (65-105) H 01/12/17 17:22 Lactate 1.3 mmol/L (0.7-2.1) 01/12/17 17:22 FiO2 21.0 % 01/12/17 17:22 Sodium 141 mmol/L (132-148) 01/15/17 06:30 Potassium 3.3 mmol/L (3.6-5.0) L 01/15/17 06:30 Chloride 110 mmol/L (98-107) H 01/15/17 06:30 Carbon Dioxide 23 mmol/L (21-33) 01/15/17 06:30 Anion Gap 11 (10-20) 01/15/17 06:30 BUN 7 mg/dL (7-21) 01/15/17 06:30 Creatinine 0.5 mg/dL (0.5-1.4) 01/15/17 06:30 Est GFR ( Amer) > 60 01/15/17 06:30 Est GFR (Non-Af Amer) > 60 01/15/17 06:30 POC Glucose (mg/dL) 144 mg/dL (65-110) H 01/15/17 11:17 Random Glucose 83 mg/dL (70-110) 01/15/17 06:30 Hemoglobin A1c 5.9 % (4.2-6.5) 01/13/17 06:45 Calcium 8.2 mg/dL (8.4-10.5) L 01/15/17 06:30 Phosphorus 2.1 mg/dL (2.5-4.5) L 01/13/17 06:45 Magnesium 2.1 mg/dL (1.7-2.2) 01/13/17 06:45 Total Bilirubin 6.7 mg/dL (0.2-1.3) H 01/15/17 06:30 Direct Bilirubin 5.8 mg/dL (0.0-0.4) H 01/13/17 06:45 AST 185 U/L (14-36) H D 01/15/17 06:30 ALT 177 U/L (7-56) H 01/15/17 06:30 Alkaline Phosphatase 160 U/L (38-126) H 01/15/17 06:30 Troponin I 0.02 ng/mL 01/12/17 12:50 Total Protein 6.7 g/dL (5.8-8.3) 01/15/17 06:30 Albumin 3.2 g/dL (3.0-4.8) 01/15/17 06:30 Globulin 3.6 gm/dL 01/15/17 06:30 Albumin/Globulin Ratio 0.9 (1.1-1.8) L 01/15/17 06:30 Triglycerides 58 mg/dL (35-160) 01/13/17 06:45 Cholesterol 123 mg/dL (130-200) L 01/13/17 06:45 LDL Cholesterol Direct 45 mg/dL (0-129) 01/13/17 06:45 HDL Cholesterol 42 mg/dL (29-60) 01/13/17 06:45 Amylase 61 U/L (35-125) 01/12/17 17:10 Lipase 56 U/L (23-300) 01/12/17 17:10 Procalcitonin 3.95 NG/ML (0.19-0.49) H 01/13/17 12:30 Venous Blood Potassium 3.3 mmol/L (3.6-5.2) L 01/12/17 17:22 Urine Color Yellow (YELLOW) 01/12/17 16:07 Urine Appearance Sl cloudy (CLEAR) 01/12/17 16:07 Urine pH 6.5 (4.7-8.0) 01/12/17 16:07 Ur Specific [place] <= 1.005 (1.005-1.035) 01/12/17 16:07 Urine Protein Negative mg/dL (<30 mg/dL) 01/12/17 16:07 Urine Glucose (UA) Negative mg/dL (NEGATIVE) 01/12/17 16:07 Urine Ketones Negative mg/dL (NEGATIVE) 01/12/17 16:07 Urine Blood Small (NEGATIVE) H 01/12/17 16:07 Urine Nitrate Negative (NEGATIVE) 01/12/17 16:07 Urine Bilirubin Small (NEGATIVE) H 01/12/17 16:07 Urine Urobilinogen 1.0 E.U./dL (<1 E.U./dL) H 01/12/17 16:07 Ur Leukocyte Esterase Small Mic/uL (NEGATIVE) H 01/12/17 16:07 Urine RBC 1 - 3 /hpf (0-2) 01/12/17 16:07 Urine WBC 5 - 10 /hpf (0-6) 01/12/17 16:07 Ur Epithelial Cells 6 - 8 /hpf (0-5) 01/12/17 16:07 Urine Bacteria Many (NEG) 01/12/17 16:07 Acetaminophen < 10.0 ug/ml (10.0-20.0) L 01/12/17 17:22 Hepatitis A IgM Ab Negative (NEGATIVE) 01/12/17 17:22 Hep Bs Antigen Negative (NEGATIVE) 01/12/17 17:22 Hep B Core IgM Ab Negative (NEGATIVE) 01/12/17 17:22 Hepatitis C Antibody Negative (NEGATIVE) 01/12/17 17:22 - Hospital Course Hospital Course: 81 y/o F with PMH of HTN and HLD presents with choledocolithiasis versus cholecystits. Pt underwent CT abdomen/pelvis which showed inflammation of the gallbladder along with gallstone. Abdominal US showed gallstone along with a 1.8 cm in the CBD. MRCP also confirmed results shown on ultrasound. Pt has been evaluated by surgery and they are planning for surgery on an outpatient basis. Continue IVF and antibiotics at this time. Pt was admitted inpatient to ICU for sepsis possibly due to cholecystitis vs choledocholithiasis. Patient was started on Pipercillan/Tazobactam in the ICU, pre-ERCP. ERCP was partially successful with stent placement, there was some residual stone in the CBD. hemodynamically stable. Patient was downgraded to telemetry. Tolerating clear liquid diet on POD 1. POD 2 advanced to solid food. LFTs went down to normal limits. Patient was discharged with instruction to follow up with Dr. Ness for ERCP in one month, and possible cholecystectomy. - Date & Time of H&P Date of H&P: 01/15/17 Time of H&P: 14:06 Discharge Exam - Head Exam Head Exam: ATRAUMATIC, NORMOCEPHALIC - Eye Exam Eye Exam: EOMI, Normal appearance, PERRL - ENT Exam ENT Exam: Mucous Membranes Moist, Normal Oropharynx - Neck Exam Neck exam: Normal Inspection - Respiratory Exam Respiratory Exam: Clear to PA & Lateral, NORMAL BREATHING PATTERN - Cardiovascular Exam Cardiovascular Exam: RRR, +S1, +S2 - GI/Abdominal Exam GI & Abdominal Exam: Normal Bowel Sounds, Unremarkable. absent: Guarding, Mass , Rebound - Extremities Exam Extremities exam: normal capillary refill, normal inspection, pedal pulses present - Back Exam Back exam: NORMAL INSPECTION. absent: CVA tenderness (L), CVA tenderness (R) - Neurological Exam Neurological exam: Alert, CN II-XII Intact, Oriented x3 - Psychiatric Exam Psychiatric exam: Normal Affect, Normal Mood - Skin Skin Exam: Dry, Intact, Normal Color, Warm Discharge Plan - Discharge Medications Prescriptions: Cephalexin [Keflex] 500 mg PO TID #21 capsule - Follow Up Plan Condition: CRITICAL Disposition: HOME/ ROUTINE Instructions: Gallstones (DC), Heart Healthy Diet (DC), Sepsis (GEN), Chronic Hypertension (DC), Fall Prevention (DC) Additional Instructions: Discharge patient to home today. Please follow up with your primary care doctor and return to the Emergency Room if your symptoms worsen. Report to the ED if your symptoms worsen. Referrals: Cindi Quintanilla MD [Primary Care Provider] - <Reymundo Lorenzo - Last Filed: 01/15/17 14:29> Provider - Provider Date of Admission: 01/12/17 16:15 Attending physician: Reymundo Lorenzo MD Primary care physician: Cindi Quintanilla MD Time Spent in preparation of Discharge (in minutes): 35 Hospital Course - Lab Results Lab Results: Micro Results 01/12/17 19:53 Naris MRSA Culture (Admit) - Final MRSA NOT DETECTED Most Recent Lab Values WBC 7.5 10^3/ul (4.5-11.0) 01/15/17 06:30 RBC 3.83 10^6/uL (3.5-6.1) 01/15/17 06:30 Hgb 11.9 g/dL (12.0-16.0) L 01/15/17 06:30 Hct 35.1 % (36.0-48.0) L 01/15/17 06:30 MCV 91.6 fl (80.0-105.0) 01/15/17 06:30 MCH 31.1 pg (25.0-35.0) 01/15/17 06:30 MCHC 33.9 g/dl (31.0-37.0) 01/15/17 06:30 RDW 14.0 % (11.5-14.5) 01/15/17 06:30 Plt Count 245 10^3/uL (120.0-450.0) 01/15/17 06:30 MPV 9.9 fl (7.0-11.0) 01/15/17 06:30 Gran % 60.7 % (50.0-68.0) 01/15/17 06:30 Lymph % (Auto) 23.4 % (22.0-35.0) 01/15/17 06:30 [place] % (Auto) 11.6 % (1.0-6.0) H 01/15/17 06:30 Eos % (Auto) 4.0 % (1.5-5.0) 01/15/17 06:30 Baso % (Auto) 0.3 % (0.0-3.0) 01/15/17 06:30 Gran # 4.58 (1.4-6.5) 01/15/17 06:30 Lymph # 1.8 (1.2-3.4) 01/15/17 06:30 [place] # 0.9 (0.1-0.6) H 01/15/17 06:30 Eos # 0.3 (0.0-0.7) 01/15/17 06:30 Baso # 0.02 K/mm3 (0.0-2.0) 01/15/17 06:30 PT 12.3 Seconds (9.9-11.8) H 01/12/17 12:50 INR 1.14 (0.93-1.08) H 01/12/17 12:50 APTT 26.8 Seconds (23.7-30.8) 01/12/17 12:50 pO2 110 mm/Hg (30-55) H 01/12/17 17:22 VBG pH 7.42 (7.32-7.43) 01/12/17 17:22 VBG pCO2 34.0 (40-60) L 01/12/17 17:22 VBG HCO3 22.1 mmol/l (21-28) 01/12/17 17:22 VBG Total CO2 23.1 mmol.L (22-28) 01/12/17 17:22 VBG O2 Sat (Calc) 99.2 % (40-65) H 01/12/17 17:22 VBG Base Excess -1.7 mmol/L (0.0-2.0) L 01/12/17 17:22 VBG Potassium 3.3 mmol/L (3.6-5.2) L 01/12/17 17:22 Sodium 135.0 mmol/L (132-148) 01/12/17 17:22 Chloride 103.0 mmol/L (98-107) 01/12/17 17:22 Glucose 135 mg/dl (65-105) H 01/12/17 17:22 Lactate 1.3 mmol/L (0.7-2.1) 01/12/17 17:22 FiO2 21.0 % 01/12/17 17:22 Sodium 141 mmol/L (132-148) 01/15/17 06:30 Potassium 3.3 mmol/L (3.6-5.0) L 01/15/17 06:30 Chloride 110 mmol/L (98-107) H 01/15/17 06:30 Carbon Dioxide 23 mmol/L (21-33) 01/15/17 06:30 Anion Gap 11 (10-20) 01/15/17 06:30 BUN 7 mg/dL (7-21) 01/15/17 06:30 Creatinine 0.5 mg/dL (0.5-1.4) 01/15/17 06:30 Est GFR ( Amer) > 60 01/15/17 06:30 Est GFR (Non-Af Amer) > 60 01/15/17 06:30 POC Glucose (mg/dL) 144 mg/dL (65-110) H 01/15/17 11:17 Random Glucose 83 mg/dL (70-110) 01/15/17 06:30 Hemoglobin A1c 5.9 % (4.2-6.5) 01/13/17 06:45 Calcium 8.2 mg/dL (8.4-10.5) L 01/15/17 06:30 Phosphorus 2.1 mg/dL (2.5-4.5) L 01/13/17 06:45 Magnesium 2.1 mg/dL (1.7-2.2) 01/13/17 06:45 Total Bilirubin 6.7 mg/dL (0.2-1.3) H 01/15/17 06:30 Direct Bilirubin 5.8 mg/dL (0.0-0.4) H 01/13/17 06:45 AST 185 U/L (14-36) H D 01/15/17 06:30 ALT 177 U/L (7-56) H 01/15/17 06:30 Alkaline Phosphatase 160 U/L (38-126) H 01/15/17 06:30 Troponin I 0.02 ng/mL 01/12/17 12:50 Total Protein 6.7 g/dL (5.8-8.3) 01/15/17 06:30 Albumin 3.2 g/dL (3.0-4.8) 01/15/17 06:30 Globulin 3.6 gm/dL 01/15/17 06:30 Albumin/Globulin Ratio 0.9 (1.1-1.8) L 01/15/17 06:30 Triglycerides 58 mg/dL (35-160) 01/13/17 06:45 Cholesterol 123 mg/dL (130-200) L 01/13/17 06:45 LDL Cholesterol Direct 45 mg/dL (0-129) 01/13/17 06:45 HDL Cholesterol 42 mg/dL (29-60) 01/13/17 06:45 Amylase 61 U/L (35-125) 01/12/17 17:10 Lipase 56 U/L (23-300) 01/12/17 17:10 Procalcitonin 3.95 NG/ML (0.19-0.49) H 01/13/17 12:30 Venous Blood Potassium 3.3 mmol/L (3.6-5.2) L 01/12/17 17:22 Urine Color Yellow (YELLOW) 01/12/17 16:07 Urine Appearance Sl cloudy (CLEAR) 01/12/17 16:07 Urine pH 6.5 (4.7-8.0) 01/12/17 16:07 Ur Specific [place] <= 1.005 (1.005-1.035) 01/12/17 16:07 Urine Protein Negative mg/dL (<30 mg/dL) 01/12/17 16:07 Urine Glucose (UA) Negative mg/dL (NEGATIVE) 01/12/17 16:07 Urine Ketones Negative mg/dL (NEGATIVE) 01/12/17 16:07 Urine Blood Small (NEGATIVE) H 01/12/17 16:07 Urine Nitrate Negative (NEGATIVE) 01/12/17 16:07 Urine Bilirubin Small (NEGATIVE) H 01/12/17 16:07 Urine Urobilinogen 1.0 E.U./dL (<1 E.U./dL) H 01/12/17 16:07 Ur Leukocyte Esterase Small Mic/uL (NEGATIVE) H 01/12/17 16:07 Urine RBC 1 - 3 /hpf (0-2) 01/12/17 16:07 Urine WBC 5 - 10 /hpf (0-6) 01/12/17 16:07 Ur Epithelial Cells 6 - 8 /hpf (0-5) 01/12/17 16:07 Urine Bacteria Many (NEG) 01/12/17 16:07 Acetaminophen < 10.0 ug/ml (10.0-20.0) L 01/12/17 17:22 Hepatitis A IgM Ab Negative (NEGATIVE) 01/12/17 17:22 Hep Bs Antigen Negative (NEGATIVE) 01/12/17 17:22 Hep B Core IgM Ab Negative (NEGATIVE) 01/12/17 17:22 Hepatitis C Antibody Negative (NEGATIVE) 01/12/17 17:22 Attending/Attestation - Attestation I have personally seen and examined this patient.: Yes I have fully participated in the care of the patient.: Yes I have reviewed all pertinent clinical information, including history, physical exam and plan: Yes Notes (Text): 01/15/17 14:26 81 year old female with past medical history of hypertension and dyslipidemia who was admitted for acute cholangitis and choledocholithiasis with elevated LFTs. She was seen by GI and surgery. She is s/p ERCP with stent placement. LFTs have trended down and her pain has improved. Patient will be discharged on po antibiotics. Follow up with pmd. Follow up with ERCP and surgery. Reymundo Lorenzo MD Hospitalist.
--- NOTE | 2017-01-15 16:56 | CP.PCM.PN ---
Subjective - Date & Time of Evaluation Date of Evaluation: 01/15/17 Time of Evaluation: 14:00 - Subjective Subjective: Infectious Disease Follow Up: January 15, 2017 81 yo AA female with with 2 week history of abdominal pain and 2 day history of poor oral intake and chills. The patient was found to have fevers up to 103.1 F on admission to the ER. The patient with potential cholecystitis and dehydration. The patient is not showing peritoneal signs. No other complaints. MRCP shows intra and extra hepatic biliary dilatation. There is a 1.8 x 1.7 cm gallstone. There is distention, lobulation, and internal septation of the gallbladder. Multiple hypointense gallstones were visualized with in the gallbladder. Mild cholecystitis. Patient taken for ERCP for sphincterotomy, extraction of sludge and small stone fragments, spyglass with EHL, and placement of a stent. Patient with choledocholithiasis, biliary obstruction, and cholangitis. Transferred from the MICU to the medical floor. The patient is tolerating liquids. She states no complaints and that the abdominal pain has resolved since the ERCP. Possible discharge today. Objective - Vital Signs/Intake and Output Vital Signs (last 24 hours): Temp Pulse Resp BP Pulse Ox 97.5 F L 79 20 150/76 98 01/15/17 07:50 01/15/17 07:50 01/15/17 07:50 01/15/17 07:50 01/15/17 07:50 Intake and Output: 01/15/17 01/15/17 06:59 18:59 Intake Total 240 Balance 240 - Labs Labs: 01/15/17 06:30 01/15/17 06:30 PT 12.3 Seconds (9.9-11.8) H 01/12/17 12:50 INR 1.14 (0.93-1.08) H 01/12/17 12:50 APTT 26.8 Seconds (23.7-30.8) 01/12/17 12:50 - Constitutional Appears: Non-toxic, No Acute Distress - Head Exam Head Exam: ATRAUMATIC, NORMOCEPHALIC - Eye Exam Eye Exam: EOMI, PERRL Pupil Exam: NORMAL ACCOMODATION, PERRL - ENT Exam ENT Exam: Mucous Membranes Moist, Normal External Ear Exam, TM's Normal Bilaterally - Neck Exam Neck Exam: Full ROM, Normal Inspection - Respiratory Exam Respiratory Exam: Clear to Ausculation Bilateral, NORMAL BREATHING PATTERN. absent: Rales, Rhonchi, Wheezes - Cardiovascular Exam Cardiovascular Exam: REGULAR RHYTHM, RRR, +S1, +S2 - GI/Abdominal Exam GI & Abdominal Exam: Soft, Normal Bowel Sounds. absent: Distended, Tenderness - Extremities Exam Extremities Exam: Full ROM, Normal Inspection - Neurological Exam Neurological Exam: Alert, Awake, CN II-XII Intact, Oriented x3 - Psychiatric Exam Psychiatric exam: Normal Affect, Normal Mood - Skin Skin Exam: Intact, Normal Color Assessment and Plan - Assessment and Plan (Free Text) Assessment: 81 yo female with abdominal pain for two weeks. The patient had 2 days of chills and poor appetite. Found to have a fever of 103.1 F in ER. The patient was taken to Ultrasound and found to have dialated CBD and 1.3 cm stone blocking the CBD. The patient was started on Zosyn and Vancomycin. Zosyn alone will be adequate coverage. Patient is being admitted to the MICU for further monitoring. May need surgery versus ERCP. Would continue hydration of the patient with IV fluids. Supportive care. Patient with choledocholithiasis, cholecystitis, and biliary obstruction. MCRP done. ERCP performed after results verified from MCRP. ERCP done for sphincterotomy, stent placement, stone removal. No further fevers but the values have been borderline. Clinically, the patient's abdominal pain has resolved. Continue on Zosyn. May consider use of Keflex 500mg PO TID for antibiotic treatment when ready for discharge for 7 days after discharge. Likely discharge today. Thank you for allowing me to participate in the care of the patient, we will follow with you.
== END 2017-01-15 14:37 | disposition home or self-care (01) | DRG 872 ==
LOC: ED 12:04 → ERH 16:15 → CCU 17:43 → 5RSO 01-14 15:15
PROVIDERS: ADMIT Internal Medicine; ATTEND Internal Medicine
DX: A41.9 Sepsis, unspecified organism (principal); K80.65 Calculus of gallbladder and bile duct with chronic cholecystitis with obstruction; I10 Essential (primary) hypertension; E78.5 Hyperlipidemia, unspecified; K59.00 Constipation, unspecified; R40.2412 Glasgow coma scale score 13-15, at arrival to emergency department; E80.6 Other disorders of bilirubin metabolism; E87.6 Hypokalemia

== ENCOUNTER 2017-01-24 08:51 | Day surgery (SDC) | payer MEDICARE, BC ==
[2017-01-24 09:20] VITALS: BMI 25.2
[2017-01-24 11:01] LABS: BASO # 0.04 K/mm3 (0.0-2.0); BASO % 0.4 % (0.0-3.0); EOS # 0.2 (0.0-0.7); EOS % 2.4 % (1.5-5.0); GRAN # 7.07 (1.4-6.5); GRAN % 70.1 % (50.0-68.0); HEMATOCRIT 30.1 % (36.0-48.0); LYMPH # 1.8 (1.2-3.4); LYMPH % 17.6 % (22.0-35.0); MEAN CELL VOLUME 91.5 fl (80.0-105.0); MEAN CORPUSCULAR HEMOGLOBIN 31.6 pg (25.0-35.0); MEAN CORPUSCULAR HGB CONC 34.6 g/dl (31.0-37.0); MEAN PLATELET VOLUME 10.4 fl (7.0-11.0); MONO % 9.5 % (1.0-6.0); WHITE BLOOD COUNT 10.1 10^3/ul (4.5-11.0)
[2017-01-24] MEDS ORDERED: Indomethacin 50 MG Suppository PR ONE (11:07)
[2017-01-24] MEDS ORDERED: Iohexol 240 (50 ml) ONE (11:09)
[2017-01-24 11:11] LABS: ALB/GLOB RATIO 0.9 (1.1-1.8); ALKALINE PHOSPHATASE 442 U/L (38-126); ALT/SGPT 174 U/L (7-56); AST/SGOT 326 U/L (14-36); BILIRUBIN,TOTAL 15.7 mg/dL (0.2-1.3); BLOOD UREA NITROGEN 8 mg/dL (7-21); CALCIUM 8.9 mg/dL (8.4-10.5); CARBON DIOXIDE 24 mmol/L (21-33); CHLORIDE 105 mmol/L (98-107); GFR AFRICAN-AMERICAN > 60; GLUCOSE,RANDOM 99 mg/dL (70-110); INR 1.16 (0.93-1.08); POTASSIUM 3.8 mmol/L (3.6-5.0); SODIUM 140 mmol/L (132-148); TOTAL PROTEIN 7.5 g/dL (5.8-8.3)
[2017-01-24] MEDS ORDERED: Piperacillin/Tazobact 3.375 gm 100 ML IVPB ONE (12:00)
[2017-01-24 12:45] VITALS: RESP 20; TEMP 98.6
[2017-01-24] MEDS ORDERED: Succinylcholine 200 mg/10 ml Inj IV ONE (13:11)
[2017-01-24] MEDS ORDERED: Etomidate 20 mg/10ml Inj IV ONE (13:11)
[2017-01-24] MEDS ORDERED: Desflurane Inhalation Anesthetic Liq (240 ml) ONE (13:25)
[2017-01-24] MEDS ORDERED: Sevoflurane - Inhalation Anesthetic Liq (250 ml) ONE (13:39)
[2017-01-24] MEDS ORDERED: Lactated Ringer's 1,000 ML IV SCH (15:29)
[2017-01-24 16:14] VITALS: BP 169/72; PULSE 74; O2SAT 96
[2017-01-26] MEDS ORDERED: Piperacillin/Tazobact 3.375 gm Inj IVPB ONE (14:24)
[2017-01-26] MEDS ORDERED: Lactated Ringer's 1,000 ML IV SCH (14:45)
--- NOTE | 2017-01-28 10:41 | RAD ---
PROCEDURE: ERCP HISTORY: ? CBD OBST COMPARISON: None TECHNIQUE: Standard protocol for this study/examination. FINDINGS: Total fluoroscopic time (continuous mode) utilized during the procedure: 142.7 IMPRESSION: Less than 1 hr fluoroscopic time utilized during performance of the procedure.
== END 2017-01-24 16:40 | disposition home or self-care (01) ==
LOC: ENDO 08:51
PROVIDERS: ATTEND Internal Medicine
DX: K80.50 Calculus of bile duct without cholangitis or cholecystitis without obstruction (principal)
CPT/HCPCS: 36415; 43262; 43264; 43275; 47539 ×3; 74330; 80053; 85025; 85610; C1726; C1876; C2625; J0330; J2001; J2543; J3480; J7120; Q9966

== ENCOUNTER → 2017-01-26 | Day surgery (SDC) | payer OTHER, MEDICARE, BC ==
[2017-01-24 09:20] VITALS: BMI 25.2
[~2017-01-26] MED LIST: Glycopyrrolate 0.2 mg/ml (2ml vial) ONE; Indomethacin 50 MG Suppository PR ONE; Iohexol 240 (50 ml) ONE; Midazolam 2 MG/2 ML VIAL ONE; Neostigmine Methylsulfate 3mg/3ml Syringe IV ONE; Phenylephrine 10 mg/ml Inj ONE; Piperacillin/Tazobact 3.375 gm Inj IVPB ONE; Propofol 10 mg/ml Inj (20 ML) ONE; Rocuronium 10 mg/ml (5 ml) ONE; ePHEDrine 50 mg/ml Inj ONE
[2017-01-26 16:11] VITALS: RESP 20; TEMP 99
[2017-01-26 17:20] VITALS: BP 146/64; PULSE 71; O2SAT 98
== END | disposition short-term general hospital (02) ==
LOC: ENDO 11:53
PROVIDERS: ATTEND Internal Medicine
DX: K80.70 Calculus of gallbladder and bile duct without cholecystitis without obstruction (principal); I10 Essential (primary) hypertension
CPT/HCPCS: 43262; 43264; 43276; 74330; J2001; J2250; J2370; J2405; J2543; J2704; J2710; J3010; Q9966

== ENCOUNTER 2017-05-31 08:04 | Day surgery (SDC) | payer MEDICARE, BC ==
[2017-05-26 09:14] VITALS: BMI 23.3
[2017-05-31] MEDS ORDERED: Iohexol 240 (50 ml) ONE (08:23)
[2017-05-31] MEDS ORDERED: Indomethacin 50 MG Suppository PR ONE ×2 (08:24→10:42)
[2017-05-31 08:39] LABS: BASO # 0.02 K/mm3 (0.0-2.0); BASO % 0.3 % (0.0-3.0); EOS # 0.4 (0.0-0.7); EOS % 6.9 % (1.5-5.0); GRAN # 1.76 (1.4-6.5); GRAN % 27.6 % (50.0-68.0); HEMOGLOBIN 14.4 g/dL (12.0-16.0); LYMPH # 3.6 (1.2-3.4); LYMPH % 55.9 % (22.0-35.0); MEAN CELL VOLUME 94.2 fl (80.0-105.0); MEAN CORPUSCULAR HEMOGLOBIN 30.8 pg (25.0-35.0); MEAN CORPUSCULAR HGB CONC 32.7 g/dl (31.0-37.0); MEAN PLATELET VOLUME 9.7 fl (7.0-11.0); MONO # 0.6 (0.1-0.6); MONO % 9.3 % (1.0-6.0); RBC 4.68 10^6/uL (3.5-6.1); RED CELL DISTRIBUTION WIDTH 14.3 % (11.5-14.5); WHITE BLOOD COUNT 6.4 10^3/ul (4.5-11.0)
[2017-05-31 08:52] LABS: ALB/GLOB RATIO 1.2 (1.1-1.8); ALBUMIN 4.3 g/dL (3.0-4.8); ALT/SGPT 34 U/L (7-56); AST/SGOT 39 U/L (14-36); BLOOD UREA NITROGEN 16 mg/dL (7-21); CALCIUM 10.1 mg/dL (8.4-10.5); GFR AFRICAN-AMERICAN > 60; GFR NON-AFRICAN AMERICAN > 60
[2017-05-31 09:07] LABS: INR 1.03 (0.93-1.08); PARTIAL THROMBOPLASTIN TIME 29.2 Seconds (25.1-36.5); PROTHROMBIN TIME 11.9 SECONDS (9.4-12.5)
[2017-05-31] MEDS ORDERED: Etomidate 20 mg/10ml Inj IV ONE (10:08)
[2017-05-31] MEDS ORDERED: Piperacillin/Tazobact 3.375 gm Inj IVPB ONE (10:22)
[2017-05-31] MEDS ORDERED: ePHEDrine 50 mg/ml Inj ONE (10:43)
[2017-05-31] MEDS ORDERED: Sodium Chloride 0.9% 1,000 ML IV SCH (11:15)
[2017-05-31 11:28] VITALS: RESP 18; O2SAT 99
[2017-05-31 12:06] VITALS: PULSE 79; TEMP 98.2
[2017-05-31 12:13] VITALS: BP 141/73
--- NOTE | 2017-05-31 17:12 | RAD ---
PROCEDURE: ERCP HISTORY: R/O OBSTRUCTION COMPARISON: None TECHNIQUE: Standard protocol for this study/examination. FINDINGS: Total fluoroscopic time (continuous mode) utilized during the procedure: 82.6 seconds. Total exam DLP: (mGy): 16.14 Total fluoroscopic time (continuous mode) utilized during the procedure: 6.0 IMPRESSION: Less than 1 hr fluoroscopic time utilized during performance of the procedure.
== END 2017-05-31 12:43 | disposition home or self-care (01) ==
LOC: ENDO 08:04
PROVIDERS: ATTEND Internal Medicine
DX: K80.50 Calculus of bile duct without cholangitis or cholecystitis without obstruction (principal)
CPT/HCPCS: 36415; 43264; 43275; 74330; 80053; 85025; 85610; 85730; J2543; J3010; J7040; Q9966